=== PATIENT | female | born 1950 | race Caucasian/White ===

== ENCOUNTER → 2016-09-27 | Outpatient (CLI) | payer MEDICARE, MEDICAID ==
[~2016-09-27] MED LIST: /ESOM40CA OR; ALLE25CA OR; ASPI1TAB PO; BIOT1CAP2 PO; CALC500T49; CALC600T10 OR; COLA100C2 OR; DETR4CAP OR; ESTR0.022; ESTR0.022 PV; ESTR62CR PV; EXCETAB OR; FETZ1CAP3 PO; FISHCAP OR; FOLI400T PO; FOLITAB11 PO; HYDR25TA6 OR; LIDO5DIS EX; LIPI10TA OR; MELOPOW XX; MOBI15TA PO; MORP15TA2 PO; MORP15TA4 OR; MORP15TA4 PO; MS C15TA5; NUCY100T6 PO; OXYBPOW PO; PERC5TAB8 PO; PILO7.5T2 PO; PRISTIQ OR; PROV100T OR; SENN8.6T5; SOMA350T; SOMA350T OR; THERGRAN OR; ULTR200T OR; VITA-121 PO; VITA200019 PO; VITA50TA12 OR; VITAMIN B6 OR; VITAMIN C OR; VITAMIN D OR; VOLT1GEL EX; ZEST20TA4 OR; [UNRECOGNIZED DRUG - OTHER]; hydroxychloroquine PO; meloxicam PO; probiotic PO; restasis OU
--- NOTE | 2016-10-13 00:31 | ECWPNPC ---
PATIENT NAME: MELL RUIZ : 1950 GENDER: FEMALE VISIT DATE: 09/27/2016 DISCHARGE DATE: 09/27/16 1510 VISIT LOCKED DATE TIME: PHYSICIAN: COLLETTE RUIZ PHYSICIAN PAGER NO: [phone] RESOURCE: COLLETTE RUIZ REASON FOR APPOINTMENT 1. NECK PAIN HISTORY OF PRESENT ILLNESS HISTORY OF PRESENT ILLNESS: HERE FOR F/U FOR NECK PAIN-CHRONIC. RATING VAS 3/10.USING SOMA 350MG PRN FOR SEVERE PAIN WHICH SHE FINDS EFFECTIVE.DISCUSSED MEDICATION OPTIONS.HAS WEANED OFF MORPHINE 15MG AND IS USING TYLENOL ARTHRITIS STRENGTH WITH SOME IMPROVEMENT.HAVING SIGNIFICANT INCREASE IN LEFT NECK PAIN AND HEADACHE LATELY. RECIEVING BOTOX FOR NECK PAIN AND HEADACHE WITH .C/O GENERALIZED BODY PAIN AND NEUROPATHY TYPE PAIN IN FEET.DISCUSSED TRIAL OF CYMBALTA. PAIN THE PATIENT DESCRIBES THE PAIN... THE PATIENT DESCRIBES THE PAIN... THE PATIENT DESCRIBES THE PAIN... FALL RISK SCREENING: SCREENING :NO FALLS IN THE PAST YEAR CURRENT MEDICATIONS TAKING CLOTRIMAZOLE 1 % CREAM 1 APPLICATION TO AFFECTED AREA EXTERNALLY TWICE A DAY, USE UNTIL THE REDNESS IS GONE TAKING TRIAMCINOLONE ACETONIDE 0.1 % CREAM 1 APPLICATION SPARINGLY TO AFFECTED AREA EXTERNALLY BID, USE SEVERAL HOURS AFTER THE CLOTRIMAZOLE, USE UNTIL THE REDNESS IS GONE TAKING HYDROXYCHLOROQUINE SULFATE 200 MG TABLET 2 TAB RHEUM ORALLY DAILY TAKING RESTASIS 0.05 % EMULSION 1 INTO BOTH EYES OPHTHALMIC TWICE A DAY TAKING FOLIC ACID 800 MCG TABLET 1 TAB(S) ORALLY DAILY TAKING EXCEDRIN TENSION HEADACHE 500-65 MG TABLET DIRECTED ORALLY NEEDED TAKING CALCIUM 600 600 MG TABLET 1 TABLET ORALLY DAILY TAKING FETZIMA 40 MG CAPSULE EXTENDED RELEASE 24 HOUR 1 CAPSULE ORALLY ONCE A DAY TAKING BIOTIN 5 MG TABLET 1 TABLET ORALLY ONCE A DAY TAKING FISH OIL 1400 MG CAPSULE 1 CAPSULE ORALLY ONCE A DAY TAKING ZESTORETIC 20-25 MG TABLET 1 TABLET ORALLY ONCE A DAY TAKING LIPITOR 10 MG TABLET 1 TABLET ORALLY AT BEDTIME TAKING PREMARIN 0.625 MG/GM CREAM 1/2 GRAM VAGINAL TWICE WEEKLY TAKING ASPIRIN ADULT LOW DOSE 81 MG TABLET DELAYED RELEASE 1 TABLET ORALLY ONCE A DAY TAKING VITAMIN D-3 SUPER STRENGTH 2000 UNIT CAPSULE 1 CAP(S) ORALLY DAILY TAKING OXYBUTYNIN CHLORIDE 5 MG TABLET 1 TABLET ORALLY ONCE A DAY TAKING COLACE 100 MG CAPSULE 4 TABS P.O. ONCE A DAY TAKING TYLENOL PM EXTRA STRENGTH 500-25 MG TABLET 1 TABLET AT BEDTIME NEEDED ORALLY ONCE A DAY TAKING SOMA 350 MG TABLET 1 TAB [facility] P.O. TWICE DAILY PRN MDD2 TAKING LYSINE 500 MG TABLET ORALLY L- LYSINE DAILY TAKING MECLIZINE HCL 25 MG TABLET 1 TABLETS ORALLY THREE TIMES A DAY NEEDED FOR VERTIGO TAKING LIPITOR 10 MG TABLET TAKE ONE TABLET BY MOUTH AT BEDTIME TAKING ZESTORETIC 25 MG-20 MG TABLET TAKE ONE TABLET BY MOUTH EVERY DAY TAKING NEXIUM 40 MG CAPSULE DELAYED RELEASE 1 CAP(S) ORALLY DAILY NOT-TAKING VOLTAREN 1 % GEL DIRECTED EXTERNALLY EVERY 8 HOURS NEEDED NOT-TAKING MELOXICAM 15 MG TABLET 1 TAB RHEUM ORALLY DAILY NEEDED NOT-TAKING VITAMIN B-12 OTC TABLET 1 TABLET ORALLY DAILY NOT-TAKING NYSTATIN 931758 UNIT/GM POWDER 1 APPLICATION TO AFFECTED AREA EXTERNALLY TWICE A DAY NOT-TAKING BETAMETHASONE DIPROPIONATE 0.05 % LOTION 1 APPLICATION TO AFFECTED AREA EXTERNALLY TWICE A DAY PRN NOT-TAKING VITAMIN E OTC/DOSE ? CAPSULE 1 CAPSULE ORALLY DAILY NOT-TAKING VITAMIN D 2000 UNIT TABLET DIRECTED ORALLY ONCE A DAY NOT-TAKING ESTRACE 0.1 MG/GM CREAM 1 GRAM VAGINALLY 2 X WEEKLY @ [facility] MEDICATION LIST REVIEWED AND RECONCILED WITH THE PATIENT PAST MEDICAL HISTORY RAQUEL/CPAP-PULM- [facility] HTN CHRONIC NECK PAIN - BOTOX WITH [facility] CHRONIC PAIN- [facility] SLE AND SJOGREN'S- RHEUMATOLOGY [facility]/ DR MCGOVERN FIBROMYALGIA-RHEUMATOLOGY [facility]/DR MCGOVERN GERD DEPRESSION - DR HALE Q3 MONTHLY ANEMIA OF CHRONIC DISEASE URINARY INCONTINENCE HYPERCHOLESTEROLEMIA ?BORDERLINE [facility] - DR. LINH CAZARES CATARACTS - DR. LINH CAZARES TM NUCLEAR STRESS CANNY 11/2010- LOW RISK, NML PERFUSION - CARY MCCLENDON 04/22 MULTINODULAR THYROID ON US 2014. ALLERGIES CIPRO: RASH: ALLERGY CLINORIL: RASH: ALLERGY IBUPROFEN: FACIAL SWELLING: ALLERGY WELLBUTRIN: RASH: ALLERGY PENICILLIN (FOR ALLERGIES USE ONLY): RASH: ALLERGY PRAVACHOL 10: MYALGIA: ALLERGY ADHESIVE TAPE: BLISTERS: ALLERGY SOCIAL HISTORY GENERAL: TOBACCO USE ARE YOU A:NONSMOKER LEARNING BARRIERS / SPECIAL NEEDS ORIENTED TO PLAN OF CARE: PATIENT, PAIN MANAGEMENT PATIENT, ORIENTED TO PLAN OF CARE: PATIENT, PAIN MANAGEMENT PATIENT. NEW PATIENT PAIN DIARY TODAY'S VISITNOTES FROM 0-10, WHAT LEVEL IS YOUR PAIN TODAY?0 PAIN CLINIC PFS, CLERGY, PUBLIC HEALTH REFERRALS PFS REFERRAL NEEDED?NO CLERGY REFERRAL NEEDED?NO PUBLIC HEALTH REFERRAL NEEDED?NO WAS THE PROVIDER NOTIFIED OF ANY PERTINENT INFO?NO PFS REFERRAL NEEDED?NO CLERGY REFERRAL NEEDED?NO PUBLIC HEALTH REFERRAL NEEDED?NO WAS THE PROVIDER NOTIFIED OF ANY PERTINENT INFO?NO REVIEW OF SYSTEMS CONSTITUTIONAL: ANY CHANGE IN YOUR MEDICAL CONDITION? NO . CHILLS NO . FEVER NO . INFECTION: DO YOU HAVE NEW INFECTIONS? NO . DO YOU HAVE HISTORY OF MRSA? NO . MUSCULOSKELETAL: ANY NEW PATTERNS OF PAIN OR NUMBNESS? NO . GASTROENTEROLOGY: ANY NEW CHANGE IN BOWEL CONTROL? NO . GENITOURINARY: ANY NEW CHANGE IN BLADDER CONTROL? NO . IS THERE A CHANCE YOU COULD BE ? NO . HEMATOLOGY/LYMPH: DO YOU TAKE ANY BLOOD THINNERS? (FOR EXAMPLE- COUMADIN, PLAVIX, AGGRENOX, PLATEL, PRADAXA, OR XARELTO) NO . WHEN WAS YOUR LAST DOSE? DATE: TIME: . NEUROLOGY: HAVE YOU FALLEN IN THE PAST 6 MONTHS? NO . ANY NEW EXTREMITY NUMBNESS OR WEAKNESS? NO . CARDIOLOGY: DO YOU HAVE A PACEMAKER OR DEFIBRILLATOR? NO . RESPIRATORY: HAVE YOU BEEN SICK IN THE PAST WEEK? NO . FEVER NO . FLU LIKE SYMPTOMS? NO . COUGH NO . INTEGUMENTARY: DO YOU HAVE ANY RASHES OR OPEN SORES? NO . ALLERGIC/IMMUNO: ARE YOU ALLERGIC TO SHELLFISH OR IV DYE? NO . ANY NEW ALLERGIES? NO . PSYCHIATRIC: DO YOU HAVE THOUGHTS OF HURTING YOURSELF OR SOMEONE ELSE? NO . ARE YOU ABUSED, NEGLECTED, OR IN AN UNSAFE ENVIRONMENT? NO . ENDOCRINOLOGY: ARE YOU DIABETIC? NO . OTHER: DO YOU NEED ANY PRESCRIPTIONS? NO . IF YES, PLEASE LIST: ____ . ANY NEW PROBLEMS WITH YOUR MEDICATIONS? NO . WHEN DID YOU LAST EAT? ____ . WHEN DID YOU LAST DRINK? ____ . WHAT DID YOU LAST DRINK? ____ . NAME OF PERSON DRIVING YOU HOME? ____ . DO YOU HAVE ANY OTHER QUESTIONS OR CONCERNS NO . REVIEWED BY: PROVIDER: COLLETTE LEWIS . VITAL SIGNS WT 167 LBS, HT 60.5 IN, BMI 32.07 INDEX, BP 141/79 MM HG, HR 90 /MIN, RR 18 /MIN, TEMP 97.3 F, OXYGEN SAT % 99%, NA INITIALS SC 14:19, REVIEWED BY: AIDA. EXAMINATION GENERAL EXAMINATION: LUNGS:LUNG SOUNDS ARE CLEAR. HEART:HEART RATE REGULAR. MUSCULOSKELETAL:*, MUSCLE STRENGTH TESTING 5/5 BILATERAL UPPER AND LOWER EXTREMITIES., PALPATION: POSITIVE FOR PAIN OVER CERVICAL SPINE. POSITIVE FOR PAIN OVER CERVICAL PARASPINALS.. ASSESSMENTS CERVICALGIA - M54.2 (PRIMARY) MYALGIA - M79.1 NEUROPATHY - G62.9 TREATMENT CERVICALGIA CONTINUE COLACE CAPSULE, 100 MG, 4 TABS, P.O., ONCE A DAY CONTINUE SOMA TABLET, 350 MG, 1 TAB [facility], P.O., TWICE DAILY PRN MDD2 START CYMBALTA CAPSULE DELAYED RELEASE PARTICLES, 30 MG, 1 CAPSULE, ORALLY, ONCE A DAY, 30 DAY(S), 30 CAPSULE, REFILLS 2 PROCEDURE CODES FA211 ESTABILISHED PATIENT [facility] FACILITY CHARGE G8730 PAIN ASSESS POS TOOL F/U PLAN DOC G8427 DOC MEDS VERIFIED W/PT OR RE FOLLOW UP 6 WEEKS ELECTRONICALLY SIGNED BY JOSHUA MILLER ON 10/12/2016 AT 01:40 PM EST DISCLAIMER : THIS IS A VISIT SUMMARY EXTRACTED FROM THE [employer] CHART. IT IS NOT A COPY OF THE [employer] PROGRESS NOTE. MTDD
== END ==
LOC: M PAIN 14:20
PROVIDERS: ATTEND Nurse Practitioner Family
DX: M54.2 Cervicalgia (principal); M79.1 Myalgia; G62.9 Polyneuropathy, unspecified; Z79.82 Long term (current) use of aspirin; Z79.899 Other long term (current) drug therapy; Z88.1 Allergy status to other antibiotic agents; Z88.6 Allergy status to analgesic agent; Z88.0 Allergy status to penicillin; Z88.8 Allergy status to other drugs, medicaments and biological substances; Z91.048 Other nonmedicinal substance allergy status
CPT/HCPCS: G0463 ×2

== ENCOUNTER → 2016-11-08 | Outpatient (CLI) | payer MEDICARE, MEDICAID ==
--- NOTE | 2016-11-10 01:08 | ECWPNPC ---
PATIENT NAME: MELL RUIZ : 1950 GENDER: FEMALE VISIT DATE: 11/08/2016 DISCHARGE DATE: 11/08/16 1442 VISIT LOCKED DATE TIME: PHYSICIAN: COLLETTE RUIZ PHYSICIAN PAGER NO: [phone] RESOURCE: COLLETTE RUIZ REASON FOR APPOINTMENT 1. NECK PAIN HISTORY OF PRESENT ILLNESS HISTORY OF PRESENT ILLNESS: HERE FOR F/U FOR NECK PAIN-CHRONIC. RATING VAS 4/10.USING SOMA 350MG PRN FOR SEVERE PAIN WHICH SHE FINDS EFFECTIVE.DISCUSSED MEDICATION OPTIONS.HAS WEANED OFF MORPHINE 15MG AND IS USING TYLENOL ARTHRITIS STRENGTH WITH SOME IMPROVEMENT. RECIEVING BOTOX FOR NECK PAIN AND HEADACHE WITH .C/O GENERALIZED BODY PAIN AND NEUROPATHY TYPE PAIN IN FEET.TRIALED ON CYMBALTA 30MG DAILY LAST MONTH AT OUR CLINIC.STATES ACHY ALL OVER PAIN HAS NOT BEEN INTENSE.DENIES SIDE EFFECTS. PAIN THE PATIENT DESCRIBES THE PAIN... THE PATIENT DESCRIBES THE PAIN... THE PATIENT DESCRIBES THE PAIN... THE PATIENT DESCRIBES THE PAIN... FALL RISK SCREENING: SCREENING :NO FALLS IN THE PAST YEAR CURRENT MEDICATIONS TAKING CLOTRIMAZOLE 1 % CREAM 1 APPLICATION TO AFFECTED AREA EXTERNALLY TWICE A DAY, USE UNTIL THE REDNESS IS GONE TAKING TRIAMCINOLONE ACETONIDE 0.1 % CREAM 1 APPLICATION SPARINGLY TO AFFECTED AREA EXTERNALLY BID, USE SEVERAL HOURS AFTER THE CLOTRIMAZOLE, USE UNTIL THE REDNESS IS GONE TAKING HYDROXYCHLOROQUINE SULFATE 200 MG TABLET 2 TAB RHEUM ORALLY DAILY TAKING RESTASIS 0.05 % EMULSION 1 INTO BOTH EYES OPHTHALMIC TWICE A DAY TAKING FOLIC ACID 800 MCG TABLET 1 TAB(S) ORALLY DAILY TAKING EXCEDRIN TENSION HEADACHE 500-65 MG TABLET DIRECTED ORALLY NEEDED TAKING CALCIUM 600 600 MG TABLET 1 TABLET ORALLY DAILY TAKING FETZIMA 40 MG CAPSULE EXTENDED RELEASE 24 HOUR 1 CAPSULE ORALLY ONCE A DAY TAKING BIOTIN 5 MG TABLET 1 TABLET ORALLY ONCE A DAY TAKING FISH OIL 1400 MG CAPSULE 1 CAPSULE ORALLY ONCE A DAY TAKING ZESTORETIC 20-25 MG TABLET 1 TABLET ORALLY ONCE A DAY TAKING LIPITOR 10 MG TABLET 1 TABLET ORALLY AT BEDTIME TAKING PREMARIN 0.625 MG/GM CREAM 1/2 GRAM VAGINAL TWICE WEEKLY TAKING ASPIRIN ADULT LOW DOSE 81 MG TABLET DELAYED RELEASE 1 TABLET ORALLY ONCE A DAY TAKING VITAMIN D-3 SUPER STRENGTH 2000 UNIT CAPSULE 1 CAP(S) ORALLY DAILY TAKING OXYBUTYNIN CHLORIDE 5 MG TABLET 1 TABLET ORALLY ONCE A DAY TAKING TYLENOL PM EXTRA STRENGTH 500-25 MG TABLET 1 TABLET AT BEDTIME NEEDED ORALLY ONCE A DAY TAKING LYSINE 500 MG TABLET ORALLY L- LYSINE DAILY TAKING MECLIZINE HCL 25 MG TABLET 1 TABLETS ORALLY THREE TIMES A DAY NEEDED FOR VERTIGO TAKING LIPITOR 10 MG TABLET TAKE ONE TABLET BY MOUTH AT BEDTIME TAKING ZESTORETIC 25 MG-20 MG TABLET TAKE ONE TABLET BY MOUTH EVERY DAY TAKING NEXIUM 40 MG CAPSULE DELAYED RELEASE 1 CAP(S) ORALLY DAILY TAKING COLACE 100 MG CAPSULE 4 TABS P.O. ONCE A DAY TAKING SOMA 350 MG TABLET 1 TAB [facility] P.O. TWICE DAILY PRN MDD2 TAKING CYMBALTA 30 MG CAPSULE DELAYED RELEASE PARTICLES 1 CAPSULE ORALLY DAILY NOT-TAKING CYMBALTA 30 MG CAPSULE DELAYED RELEASE PARTICLES 1 CAPSULE ORALLY ONCE A DAY NOT-TAKING VOLTAREN 1 % GEL DIRECTED EXTERNALLY EVERY 8 HOURS NEEDED NOT-TAKING MELOXICAM 15 MG TABLET 1 TAB RHEUM ORALLY DAILY NEEDED NOT-TAKING VITAMIN B-12 OTC TABLET 1 TABLET ORALLY DAILY NOT-TAKING NYSTATIN [id number] UNIT/GM POWDER 1 APPLICATION TO AFFECTED AREA EXTERNALLY TWICE A DAY NOT-TAKING BETAMETHASONE DIPROPIONATE 0.05 % LOTION 1 APPLICATION TO AFFECTED AREA EXTERNALLY TWICE A DAY PRN NOT-TAKING VITAMIN E OTC/DOSE ? CAPSULE 1 CAPSULE ORALLY DAILY NOT-TAKING VITAMIN D 2000 UNIT TABLET DIRECTED ORALLY ONCE A DAY NOT-TAKING ESTRACE 0.1 MG/GM CREAM 1 GRAM VAGINALLY 2 X WEEKLY @ [facility] MEDICATION LIST REVIEWED AND RECONCILED WITH THE PATIENT PAST MEDICAL HISTORY RAQUEL/CPAP-PULM- [facility] HTN CHRONIC NECK PAIN - BOTOX WITH [place] CHRONIC PAIN- [facility] SLE AND SJOGREN'S- RHEUMATOLOGY [facility]/ DR MCGOVERN FIBROMYALGIA-RHEUMATOLOGY [facility]/DR MCGOVERN GERD DEPRESSION - DR HALE Q3 MONTHLY ANEMIA OF CHRONIC DISEASE URINARY INCONTINENCE HYPERCHOLESTEROLEMIA ?BORDERLINE [facility] - DR. LINH CAZARES CATARACTS - DR. LINH CAZARES TM NUCLEAR STRESS CANNY 11/2010- LOW RISK, NML PERFUSION - CARY MCCLENDON 04/22 MULTINODULAR THYROID ON US 2014. ALLERGIES CIPRO: RASH: ALLERGY CLINORIL: RASH: ALLERGY IBUPROFEN: FACIAL SWELLING: ALLERGY WELLBUTRIN: RASH: ALLERGY PENICILLIN (FOR ALLERGIES USE ONLY): RASH: ALLERGY PRAVACHOL 10: MYALGIA: ALLERGY ADHESIVE TAPE: BLISTERS: ALLERGY SOCIAL HISTORY GENERAL: TOBACCO USE ARE YOU A:NONSMOKER LEARNING BARRIERS / SPECIAL NEEDS ORIENTED TO PLAN OF CARE: PATIENT, PAIN MANAGEMENT PATIENT, ORIENTED TO PLAN OF CARE: PATIENT, PAIN MANAGEMENT PATIENT. NEW PATIENT PAIN DIARY TODAY'S VISITNOTES FROM 0-10, WHAT LEVEL IS YOUR PAIN TODAY?0 PAIN CLINIC PFS, CLERGY, PUBLIC HEALTH REFERRALS PFS REFERRAL NEEDED?NO CLERGY REFERRAL NEEDED?NO PUBLIC HEALTH REFERRAL NEEDED?NO WAS THE PROVIDER NOTIFIED OF ANY PERTINENT INFO?NO PFS REFERRAL NEEDED?NO CLERGY REFERRAL NEEDED?NO PUBLIC HEALTH REFERRAL NEEDED?NO WAS THE PROVIDER NOTIFIED OF ANY PERTINENT INFO?NO REVIEW OF SYSTEMS CONSTITUTIONAL: ANY CHANGE IN YOUR MEDICAL CONDITION? NO . RECENT ILLNESS DENIES . CHILLS NO . FEVER NO . WEIGHT LOSS DENIES . INFECTION: DO YOU HAVE NEW INFECTIONS? NO . DO YOU HAVE HISTORY OF MRSA? NO . MUSCULOSKELETAL: ANY NEW PATTERNS OF PAIN OR NUMBNESS? NO . GASTROENTEROLOGY: ANY NEW CHANGE IN BOWEL CONTROL? NO . GENITOURINARY: ANY NEW CHANGE IN BLADDER CONTROL? NO . IS THERE A CHANCE YOU COULD BE ? NO . HEMATOLOGY/LYMPH: DO YOU TAKE ANY BLOOD THINNERS? (FOR EXAMPLE- COUMADIN, PLAVIX, AGGRENOX, PLATEL, PRADAXA, OR XARELTO) NO . WHEN WAS YOUR LAST DOSE? DATE: TIME: . NEUROLOGY: HAVE YOU FALLEN IN THE PAST 6 MONTHS? NO . ANY NEW EXTREMITY NUMBNESS OR WEAKNESS? NO . CARDIOLOGY: DO YOU HAVE A PACEMAKER OR DEFIBRILLATOR? NO . CHEST PAIN DENIES . SHORTNESS OF BREATH DENIES . RESPIRATORY: HAVE YOU BEEN SICK IN THE PAST WEEK? NO . FEVER NO . FLU LIKE SYMPTOMS? NO . COUGH NO, DENIES . SHORTNESS OF BREATH DENIES . INTEGUMENTARY: DO YOU HAVE ANY RASHES OR OPEN SORES? NO . ALLERGIC/IMMUNO: ARE YOU ALLERGIC TO SHELLFISH OR IV DYE? NO . ANY NEW ALLERGIES? NO . PSYCHIATRIC: DO YOU HAVE THOUGHTS OF HURTING YOURSELF OR SOMEONE ELSE? NO . ARE YOU ABUSED, NEGLECTED, OR IN AN UNSAFE ENVIRONMENT? NO . ENDOCRINOLOGY: ARE YOU DIABETIC? NO . OTHER: DO YOU NEED ANY PRESCRIPTIONS? NO . IF YES, PLEASE LIST: ____ . ANY NEW PROBLEMS WITH YOUR MEDICATIONS? NO . WHEN DID YOU LAST EAT? ____ . WHEN DID YOU LAST DRINK? ____ . WHAT DID YOU LAST DRINK? ____ . NAME OF PERSON DRIVING YOU HOME? ____ . DO YOU HAVE ANY OTHER QUESTIONS OR CONCERNS NO . REVIEWED BY: PROVIDER: COLLETTE LEWIS . VITAL SIGNS WT 158 LBS, HT 60.5 IN, BMI 30.35 INDEX, BP 145/82 MM HG, HR 92 /MIN, RR 16 /MIN, TEMP 96.9 F, OXYGEN SAT % 99, NA INITIALS TL 1356, REVIEWED BY: KG. EXAMINATION GENERAL EXAMINATION: LUNGS:LUNG SOUNDS ARE CLEAR. HEART:HEART RATE REGULAR. MUSCULOSKELETAL:*, MUSCLE STRENGTH TESTING 5/5 BILATERAL UPPER AND LOWER EXTREMITIES., PALPATION: POSITIVE FOR PAIN OVER C SPINE. POSITIVE FOR PAIN OVER CERVICAL PARASPINALS.. DIAGNOSTIC: . ASSESSMENTS CERVICALGIA - M54.2 (PRIMARY) MYALGIA - M79.1 NEUROPATHY - G62.9 TREATMENT CERVICALGIA REFILL CYMBALTA CAPSULE DELAYED RELEASE PARTICLES, 30 MG, 1 CAPSULE, ORALLY, DAILY, 30 DAY(S), 30 CAPSULE, REFILLS 1 CONTINUE SOMA TABLET, 350 MG, 1 TAB [facility], P.O., TWICE DAILY PRN MDD2 PROCEDURE CODES FA211 ESTABILISHED PATIENT [facility] FACILITY CHARGE G8730 PAIN ASSESS POS TOOL F/U PLAN DOC G8427 DOC MEDS VERIFIED W/PT OR RE DISPOSITION & COMMUNICATION FOLLOW UP 2 MONTHS ELECTRONICALLY SIGNED BY JOSHUA MILLER ON 11/09/2016 AT 01:51 PM EST DISCLAIMER : THIS IS A VISIT SUMMARY EXTRACTED FROM THE [employer] CHART. IT IS NOT A COPY OF THE [employer] PROGRESS NOTE. MTDD
== END ==
LOC: M PAIN 14:00
PROVIDERS: ATTEND Nurse Practitioner Family
DX: Z09 Encounter for follow-up examination after completed treatment for conditions other than malignant neoplasm (principal); G89.29 Other chronic pain; M54.2 Cervicalgia; M79.7 Fibromyalgia; G62.9 Polyneuropathy, unspecified; G47.33 Obstructive sleep apnea (adult) (pediatric); I10 Essential (primary) hypertension; M35.00 Sjogren syndrome, unspecified; M32.9 Systemic lupus erythematosus, unspecified; K21.9 Gastro-esophageal reflux disease without esophagitis; F32.9 Major depressive disorder, single episode, unspecified; D64.9 Anemia, unspecified; E78.00 Pure hypercholesterolemia, unspecified; Z88.8 Allergy status to other drugs, medicaments and biological substances; Z88.0 Allergy status to penicillin; Z88.6 Allergy status to analgesic agent; L23.1 Allergic contact dermatitis due to adhesives; Z79.82 Long term (current) use of aspirin; Z79.891 Long term (current) use of opiate analgesic; Z79.899 Other long term (current) drug therapy

== ENCOUNTER → 2017-01-24 | Outpatient (CLI) | payer MEDICARE, MEDICAID ==
[~2017-01-24] VITALS: Ht 154.9 cm; Wt 73.0 kg
[~2017-01-24] MED LIST changes: +ACET50TA PO; +ATOR1TAB19 PO; +BIOT5TAB3 PO; +CALCTAB20 PO; +COLA100C3 PO; +DITR5TAB PO; +EXCETAB42 PO; +LIDOCAINE 2% INJ 100 MG/5 ML SDV (FOR ANES.) As Ordered ONE; +LIPI10TA PO; +LISI20TA3 PO; +NEXI40CA PO; +NS 1,000 ML IV ONE; +PROPOFOL 200 MG/20 ML VIAL As Ordered ONE
--- NOTE | 2017-01-24 11:40 | ROOR ---
Patient Name: Amaris Mtz Procedure Date: 01/24/2017 11:32 AM Date of : 1950 Age: 66 Room: [facility] Gender: Female Note Status: Finalized Procedure: Upper GI endoscopy Indications: Heartburn Providers: Ervin Shafer MD Referring MD: TITI YANG MD Requesting Provider: Medicines: Monitored Anesthesia Care Complications: No immediate complications. Procedure: Pre-Anesthesia Assessment: - The heart rate, respiratory rate, oxygen saturations, blood pressure, adequacy of pulmonary ventilation, and response to care were monitored throughout the procedure. The Endoscope was introduced through the mouth, and advanced to the second part of duodenum. The upper GI endoscopy was accomplished without difficulty. The patient tolerated the procedure well. Findings: The Z-line was regular and was found 40 cm from the incisors. No other significant abnormalities were identified in a careful examination of the stomach. The exam of the duodenum was otherwise normal. Impression: - Z-line regular, 40 cm from the incisors. - No specimens collected. - The examination was otherwise normal. Recommendation: - Patient has a contact number available for emergencies. The signs and symptoms of potential delayed complications were discussed with the patient. Return to normal activities tomorrow. Written discharge instructions were provided to the patient. - High fiber diet. - Discharge patient to home. - Continue present medications. - Follow an antireflux regimen. - Return to referring physician. - The findings and recommendations were discussed with the patient's family. Ervin Shafer MD Ervin Shafer MD 01/24/2017 11:39:37 AM This report has been signed electronically. Number of Addenda: 0 Note Initiated On: 01/24/2017 11:32 AM Estimated Blood Loss: Estimated blood loss: none.
--- NOTE | 2017-01-24 11:57 | ROOR ---
Patient Name: Amaris Mtz Procedure Date: 01/24/2017 11:33 AM Date of : 1950 Age: 66 Room: [facility] Gender: Female Note Status: Finalized Procedure: Total Colonoscopy to Cecum Indications: Colon cancer screening in patient at increased risk: Colorectal cancer in brother Providers: Ervin Shafer MD Referring MD: TITI YANG MD Requesting Provider: Medicines: Monitored Anesthesia Care Complications: No immediate complications. Procedure: Pre-Anesthesia Assessment: - The heart rate, respiratory rate, oxygen saturations, blood pressure, adequacy of pulmonary ventilation, and response to care were monitored throughout the procedure. The Colonoscope was introduced through the anus and advanced to the cecum, identified by appendiceal orifice and ileocecal valve. The colonoscopy was performed without difficulty. The patient tolerated the procedure well. The quality of the bowel preparation was excellent. Findings: The perianal and digital rectal examinations were normal. Non-bleeding internal hemorrhoids were found during retroflexion. The hemorrhoids were small and Grade I (internal hemorrhoids that do not prolapse). Scattered small and large-mouthed diverticula were found in the recto-sigmoid colon, sigmoid colon and descending colon. The exam was otherwise without abnormality on direct and retroflexion views. Impression: - Non-bleeding internal hemorrhoids. - Diverticulosis in the recto-sigmoid colon, in the sigmoid colon and in the descending colon. - The examination was otherwise normal on direct and retroflexion views. - No specimens collected. - The exam was otherwise normal to the cecum. Recommendation: - Patient has a contact number available for emergencies. The signs and symptoms of potential delayed complications were discussed with the patient. Return to normal activities tomorrow. Written discharge instructions were provided to the patient. - High fiber diet. - Discharge patient to home. - Continue present medications. - Repeat colonoscopy in 5 years for screening purposes. - Return to referring physician. - The findings and recommendations were discussed with the patient's family. Ervin Shafer MD Ervin Shafer MD 01/24/2017 11:56:45 AM This report has been signed electronically. Number of Addenda: 0 Note Initiated On: 01/24/2017 11:33 AM Estimated Blood Loss: Estimated blood loss: none.
[2017-01-24 12:20] VITALS: BP 138/83
== END | disposition home or self-care (01) ==
LOC: M OPP 10:14
PROVIDERS: ATTEND Internal Medicine Gastroenterology
DX: K62.5 Hemorrhage of anus and rectum (principal); R19.4 Change in bowel habit; K57.30 Diverticulosis of large intestine without perforation or abscess without bleeding; K64.0 First degree hemorrhoids; Z80.0 Family history of malignant neoplasm of digestive organs; R12 Heartburn; K21.9 Gastro-esophageal reflux disease without esophagitis; I10 Essential (primary) hypertension; E78.5 Hyperlipidemia, unspecified; R01.1 Cardiac murmur, unspecified; M32.9 Systemic lupus erythematosus, unspecified; F41.9 Anxiety disorder, unspecified; F32.9 Major depressive disorder, single episode, unspecified; R51 Headache; Z87.828 Personal history of other (healed) physical injury and trauma; M51.9 Unspecified thoracic, thoracolumbar and lumbosacral intervertebral disc disorder; G47.8 Other sleep disorders; G47.30 Sleep apnea, unspecified; R32 Unspecified urinary incontinence; Z87.891 Personal history of nicotine dependence; Z88.8 Allergy status to other drugs, medicaments and biological substances; Z91.040 Latex allergy status; Z88.1 Allergy status to other antibiotic agents; Z88.0 Allergy status to penicillin; Z91.048 Other nonmedicinal substance allergy status; Z79.82 Long term (current) use of aspirin; Z79.899 Other long term (current) drug therapy

== ENCOUNTER → 2017-02-02 | Outpatient (CLI) | payer MEDICARE, MEDICAID ==
[~2017-02-02] MED LIST changes: -LIDOCAINE 2% INJ 100 MG/5 ML SDV (FOR ANES.) As Ordered ONE; -NS 1,000 ML IV ONE; -PROPOFOL 200 MG/20 ML VIAL As Ordered ONE
--- NOTE | 2017-02-25 00:45 | ECWPNPC ---
PATIENT NAME: MELL RUIZ : 1950 GENDER: FEMALE VISIT DATE: 02/02/2017 DISCHARGE DATE: 02/02/17 1413 VISIT LOCKED DATE TIME: PHYSICIAN: COLLETTE RUIZ PHYSICIAN PAGER NO: [phone] RESOURCE: COLLETTE RUIZ REASON FOR APPOINTMENT 1. R/S BACK/NECK HISTORY OF PRESENT ILLNESS HISTORY OF PRESENT ILLNESS: HERE FOR F/U FOR NECK PAIN-CHRONIC. RATING VAS 4/10.USING SOMA 350MG PRN FOR SEVERE PAIN WHICH SHE FINDS EFFECTIVE.DISCUSSED MEDICATION OPTIONS.HAS WEANED OFF MORPHINE 15MG AND IS USING TYLENOL ARTHRITIS STRENGTH WITH SOME IMPROVEMENT. RECIEVING BOTOX FOR NECK PAIN AND HEADACHE WITH .C/O GENERALIZED BODY PAIN AND NEUROPATHY TYPE PAIN IN FEET.TRIALED ON CYMBALTA 30MG DAILY LAST MONTH AT OUR CLINIC.STATES ACHY ALL OVER PAIN HAS NOT BEEN INTENSE.DENIES SIDE EFFECTS. PAIN THE PATIENT DESCRIBES THE PAIN... THE PATIENT DESCRIBES THE PAIN... THE PATIENT DESCRIBES THE PAIN... THE PATIENT DESCRIBES THE PAIN... THE PATIENT DESCRIBES THE PAIN... PAIN THE PATIENT DESCRIBES THE PAIN... THE PATIENT DESCRIBES THE PAIN... THE PATIENT DESCRIBES THE PAIN... THE PATIENT DESCRIBES THE PAIN... THE PATIENT DESCRIBES THE PAIN... FALL RISK SCREENING: SCREENING :NO FALLS IN THE PAST YEAR CURRENT MEDICATIONS TAKING CLOTRIMAZOLE 1 % CREAM 1 APPLICATION TO AFFECTED AREA EXTERNALLY TWICE A DAY, USE UNTIL THE REDNESS IS GONE TAKING TRIAMCINOLONE ACETONIDE 0.1 % CREAM 1 APPLICATION SPARINGLY TO AFFECTED AREA EXTERNALLY BID, USE SEVERAL HOURS AFTER THE CLOTRIMAZOLE, USE UNTIL THE REDNESS IS GONE TAKING HYDROXYCHLOROQUINE SULFATE 200 MG TABLET 2 TAB RHEUM ORALLY DAILY TAKING RESTASIS 0.05 % EMULSION 1 INTO BOTH EYES OPHTHALMIC TWICE A DAY TAKING FOLIC ACID 800 MCG TABLET 1 TAB(S) ORALLY DAILY TAKING EXCEDRIN TENSION HEADACHE 500-65 MG TABLET DIRECTED ORALLY NEEDED TAKING CALCIUM 600 600 MG TABLET 1 TABLET ORALLY DAILY TAKING FETZIMA 40 MG CAPSULE EXTENDED RELEASE 24 HOUR 1 CAPSULE ORALLY ONCE A DAY TAKING BIOTIN 5 MG TABLET 1 TABLET ORALLY ONCE A DAY TAKING FISH OIL 1400 MG CAPSULE 1 CAPSULE ORALLY ONCE A DAY TAKING ZESTORETIC 20-25 MG TABLET 1 TABLET ORALLY ONCE A DAY TAKING LIPITOR 10 MG TABLET 1 TABLET ORALLY AT BEDTIME TAKING PREMARIN 0.625 MG/GM CREAM 1/2 GRAM VAGINAL TWICE WEEKLY TAKING ASPIRIN ADULT LOW DOSE 81 MG TABLET DELAYED RELEASE 1 TABLET ORALLY ONCE A DAY TAKING VITAMIN D3 SUPER STRENGTH 2000 UNIT CAPSULE 1 CAP(S) ORALLY DAILY TAKING OXYBUTYNIN CHLORIDE 5 MG TABLET 1 TABLET ORALLY ONCE A DAY TAKING TYLENOL PM EXTRA STRENGTH 500-25 MG TABLET 1 TABLET AT BEDTIME NEEDED ORALLY ONCE A DAY TAKING MECLIZINE HCL 25 MG TABLET 1 TABLETS ORALLY THREE TIMES A DAY NEEDED FOR VERTIGO TAKING LIPITOR 10 MG TABLET TAKE ONE TABLET BY MOUTH AT BEDTIME TAKING ZESTORETIC 25 MG-20 MG TABLET TAKE ONE TABLET BY MOUTH EVERY DAY TAKING NEXIUM 40 MG CAPSULE DELAYED RELEASE 1 CAP(S) ORALLY DAILY TAKING SOMA 350 MG TABLET 1 TAB [facility] P.O. TWICE DAILY PRN MDD2 TAKING COLACE 100 MG CAPSULE 4 CAP P.O. ONCE A DAY TAKING CYMBALTA 30 MG CAPSULE DELAYED RELEASE PARTICLES 1 CAPSULE ORALLY DAILY TAKING MELOXICAM 15 MG TABLET 1 TAB RHEUM ORALLY DAILY NEEDED NOT-TAKING LYSINE 500 MG TABLET ORALLY L- LYSINE DAILY NOT-TAKING CYMBALTA 30 MG CAPSULE DELAYED RELEASE PARTICLES 1 CAPSULE ORALLY ONCE A DAY NOT-TAKING VOLTAREN 1 % GEL DIRECTED EXTERNALLY EVERY 8 HOURS NEEDED NOT-TAKING VITAMIN B-12 OTC TABLET 1 TABLET ORALLY DAILY NOT-TAKING NYSTATIN [id number] UNIT/GM POWDER 1 APPLICATION TO AFFECTED AREA EXTERNALLY TWICE A DAY NOT-TAKING BETAMETHASONE DIPROPIONATE 0.05 % LOTION 1 APPLICATION TO AFFECTED AREA EXTERNALLY TWICE A DAY PRN NOT-TAKING VITAMIN E OTC/DOSE ? CAPSULE 1 CAPSULE ORALLY DAILY NOT-TAKING VITAMIN D 2000 UNIT TABLET DIRECTED ORALLY ONCE A DAY NOT-TAKING ESTRACE 0.1 MG/GM CREAM 1 GRAM VAGINALLY 2 X WEEKLY @ [facility] MEDICATION LIST REVIEWED AND RECONCILED WITH THE PATIENT PAST MEDICAL HISTORY RAQUEL/CPAP-PULM- [facility] HTN CHRONIC NECK PAIN - BOTOX WITH ANA CHRONIC PAIN- [facility] SLE AND SJOGREN'S- RHEUMATOLOGY [facility]/ DR MCGOVERN FIBROMYALGIA-RHEUMATOLOGY [facility]/DR MCGOVERN GERD DEPRESSION - DR HALE Q3 MONTHLY ANEMIA OF CHRONIC DISEASE URINARY INCONTINENCE HYPERCHOLESTEROLEMIA ?BORDERLINE [facility] - DR. LINH CAZARES CATARACTS - DR. LINH CAZARES TM NUCLEAR STRESS CANNY 11/2010- LOW RISK, NML PERFUSION - TOWNSEND DEXA 04/22 MULTINODULAR THYROID ON US 2014. DIVERTICULOSIS ALLERGIES CIPRO: RASH: ALLERGY CLINORIL: RASH: ALLERGY IBUPROFEN: FACIAL SWELLING: ALLERGY WELLBUTRIN: RASH: ALLERGY PENICILLIN (FOR ALLERGIES USE ONLY): RASH: ALLERGY PRAVACHOL 10: MYALGIA: ALLERGY ADHESIVE TAPE: BLISTERS: ALLERGY SURGICAL HISTORY TONSILLECTOMY [age] YO D&C 1990S C-SPINE SURGERY X 2 - DR. ROMERO 1988, 2000 HYSTERECTOMY, TOTAL WITH BSO FOR BENIGN REASONS 2000 RIGHT CARPAL TUNNEL 2007 COLONOSCOPY & EGD (ROSANA) INTERNAL HEMORRHOIDS/POLYP X 1 NO ADENOMATOUS CHANGES 09/2009 L LITTLE FINGER, EXCISION OF MASS () 11/2013 LEFT BREAST BX, DUCTAL HYPERPLASIA 10/2002 COLONOSCOPY 2017 HOSPITALIZATION/MAJOR DIAGNOSTIC PROCEDURE RELATED TO SURGERIES REVIEW OF SYSTEMS CONSTITUTIONAL: ANY CHANGE IN YOUR MEDICAL CONDITION? NO . CHILLS NO . FEVER NO . INFECTION: DO YOU HAVE NEW INFECTIONS? NO . DO YOU HAVE HISTORY OF MRSA? NO . MUSCULOSKELETAL: ANY NEW PATTERNS OF PAIN OR NUMBNESS? NO. PT STATES NO NEW PATTERNS OF PAIN . GASTROENTEROLOGY: ANY NEW CHANGE IN BOWEL CONTROL? NO. PT STATES SHE HAD A ENDOSCOPY AND COLONOSCOPY DONE LAST WEEK AND WAS DX WITH DIVERTICULOSIS . GENITOURINARY: ANY NEW CHANGE IN BLADDER CONTROL? NO, PT REPORTS STRESS INCONTINENCE . IS THERE A CHANCE YOU COULD BE ? NO . HEMATOLOGY/LYMPH: DO YOU TAKE ANY BLOOD THINNERS? (FOR EXAMPLE- COUMADIN, PLAVIX, AGGRENOX, PLATEL, PRADAXA, OR XARELTO) NO . WHEN WAS YOUR LAST DOSE? DATE: TIME: . NEUROLOGY: HAVE YOU FALLEN IN THE PAST 6 MONTHS? NO . ANY NEW EXTREMITY NUMBNESS OR WEAKNESS? NO . CARDIOLOGY: DO YOU HAVE A PACEMAKER OR DEFIBRILLATOR? NO . RESPIRATORY: HAVE YOU BEEN SICK IN THE PAST WEEK? NO . FEVER NO . FLU LIKE SYMPTOMS? NO . COUGH NO . INTEGUMENTARY: DO YOU HAVE ANY RASHES OR OPEN SORES? YES, RASH TO BRA LINE AREA, NECK AND PANT LINE WAISTE AREA. . ALLERGIC/IMMUNO: ARE YOU ALLERGIC TO SHELLFISH OR IV DYE? NO . ANY NEW ALLERGIES? NO . PSYCHIATRIC: DO YOU HAVE THOUGHTS OF HURTING YOURSELF OR SOMEONE ELSE? NO . ARE YOU ABUSED, NEGLECTED, OR IN AN UNSAFE ENVIRONMENT? NO . ENDOCRINOLOGY: ARE YOU DIABETIC? NO, PT STATES PRE-DIABETIC . OTHER: DO YOU NEED ANY PRESCRIPTIONS? YES, SOMA . IF YES, PLEASE LIST: ____ . ANY NEW PROBLEMS WITH YOUR MEDICATIONS? NO . WHEN DID YOU LAST EAT? ____ . WHEN DID YOU LAST DRINK? ____ . WHAT DID YOU LAST DRINK? ____ . NAME OF PERSON DRIVING YOU HOME? ____ . DO YOU HAVE ANY OTHER QUESTIONS OR CONCERNS NO . REVIEWED BY: PROVIDER: COLLETTE LEWIS . VITAL SIGNS WT 159.0 LBS, HT 60.5 IN, BMI 30.54 INDEX, BP 140/61 MM HG, HR 99 /MIN, RR 16 /MIN, TEMP 98.0 F, OXYGEN SAT % 99%, SAFE IN ENV? (Y/N) Y, NA INITIALS TL 1334, REVIEWED BY: EM. EXAMINATION GENERAL EXAMINATION: LUNGS:LUNG SOUNDS ARE CLEAR. HEART:HEART RATE REGULAR. MUSCULOSKELETAL:*, MUSCLE STRENGTH TESTING 5/5 BILATERAL UPPER AND LOWER EXTREMITIES., PALPATION: POSITIVE FOR PAIN OVER C SPINE. POSITIVE FOR PAIN OVER CERVICAL PARASPINALS.. DIAGNOSTIC: . ASSESSMENTS CERVICALGIA - M54.2 (PRIMARY) MYALGIA - M79.1 NEUROPATHY - G62.9 TREATMENT CERVICALGIA REFILL SOMA TABLET, 350 MG, 1 TAB [facility], P.O., TWICE DAILY PRN MDD2, 30 DAY(S), 30, REFILLS 2 CONTINUE COLACE CAPSULE, 100 MG, 4 CAP, P.O., ONCE A DAY CONTINUE CYMBALTA CAPSULE DELAYED RELEASE PARTICLES, 30 MG, 1 CAPSULE, ORALLY, DAILY CONTINUE MELOXICAM TABLET, 15 MG, 1 TAB RHEUM, ORALLY, DAILY NEEDED NOTES: TAKE CYMBALTA 30MG DAILY EVERY DAY AT SAME TIMEUSE MOBIC 15MG ONCE PER DAY X 5 DAYS NEEDED FOR [employer]. PROCEDURE CODES FA211 ESTABILISHED PATIENT [facility] CHARGE G8730 PAIN ASSESS POS TOOL F/U PLAN DOC G8427 DOC MEDS VERIFIED W/PT OR RE DISPOSITION & COMMUNICATION FOLLOW UP 3 MONTHS ELECTRONICALLY SIGNED BY JOSHUA MILLER ON 02/24/2017 AT 08:22 PM EDT DISCLAIMER : THIS IS A VISIT SUMMARY EXTRACTED FROM THE [employer] CHART. IT IS NOT A COPY OF THE [employer] PROGRESS NOTE. MTDD
== END ==
LOC: M PAIN 13:20
PROVIDERS: ATTEND Nurse Practitioner Family
DX: G89.29 Other chronic pain (principal); M54.2 Cervicalgia; M79.1 Myalgia; G62.9 Polyneuropathy, unspecified; G47.33 Obstructive sleep apnea (adult) (pediatric); I10 Essential (primary) hypertension; M35.00 Sjogren syndrome, unspecified; M32.9 Systemic lupus erythematosus, unspecified; K21.9 Gastro-esophageal reflux disease without esophagitis; F32.9 Major depressive disorder, single episode, unspecified; K57.90 Diverticulosis of intestine, part unspecified, without perforation or abscess without bleeding; H26.9 Unspecified cataract; R32 Unspecified urinary incontinence; E78.00 Pure hypercholesterolemia, unspecified; D63.8 Anemia in other chronic diseases classified elsewhere; E04.2 Nontoxic multinodular goiter; Z79.82 Long term (current) use of aspirin; Z79.899 Other long term (current) drug therapy; Z88.0 Allergy status to penicillin; Z88.1 Allergy status to other antibiotic agents; Z88.8 Allergy status to other drugs, medicaments and biological substances; Z88.6 Allergy status to analgesic agent; Z91.048 Other nonmedicinal substance allergy status

== ENCOUNTER → 2017-03-22 | Outpatient (CLI) | payer MEDICARE, MEDICAID ==
[~2017-03-22] MED LIST changes: -COLA100C3 PO; +COLA100C5 PO; -EXCETAB42 PO; +EXCETAB49 PO
--- NOTE | 2017-03-24 10:00 | DEXA ---
AP SPINE L1 - L4 1.096 -0.8 0.8 LT FEMUR TOTAL 1.015 0.1 1.4 RT FEMUR TOTAL 0.964 -0.4 1.0 TOTAL BODY TOTAL OTHER DUAL FEMUR FRAX* ASSESSMENT Risk factors: Family history hip fracture. 10 year probability of fracture Major osteoporotic fracture 15.9 % Hip fracture 2.3 % COMMENTS: Normal bone densitometry of the spine. There is low bone density of the hips. The decreased density of the spine does represent a significant change. The decreased density of the left hip does represent a significant change. The decreased density of the right hip does represent a significant change. The density of the spine has decreased 6.0% since the initial exam on 07/2003. The spine density has decreased 5.4% since the most recent exam on 04/2012. The density of the left hip has decreased 3.5% since the initial exam on 2002. The density of the left hip has decreased 4.1% since the most recent exam on 2011. The density of the right hip has decreased 5.8% since the initial exam on 2002. The density of the right hip has decreased 4.3% since the most recent exam on 2011. FOLLOW-UP: Recommendation for the next bone density exam: 2 years. GENE
== END ==
LOC: M WHC 12:53
PROVIDERS: ATTEND Nurse Practitioner Women's Health
DX: Z13.820 Encounter for screening for osteoporosis (principal); Z78.0 Asymptomatic menopausal state; M85.80 Other specified disorders of bone density and structure, unspecified site

== ENCOUNTER → 2017-03-30 | Outpatient (REF) | payer MEDICARE, MEDICAID ==
[2017-03-30 17:53] LABS: BASO % 1.1 % (0.0-1.0); EOS # 0.3 K/mm3 (0.0-0.50); EOS % 6.2 % (0.0-3.0); LARGE UNSTAINED CELL # 0.2 K/mm3 (0.0-0.4); LARGE UNSTAINED CELL % 3.5 % (0.0-4.0); LYMPH # 1.6 K/mm3 (1.5-4.5); MEAN CORPUSCULAR HEMOGLOBIN 29.9 pg (27.0-33.0); MEAN CORPUSCULAR HGB CONC 34.2 g/dl (32.0-36.5); MEAN CORPUSCULAR VOLUME 87.5 fl (80.0-96.0); MONO # 0.5 K/mm3 (0.0-0.8); MONO % 10.1 % (0.0-5.0); NEUTROPHILS # 2.5 K/mm3 (1.8-7.7); NEUTROPHILS % 50.2 % (36.0-66.0); PLATELET COUNT, AUTOMATED 325 k/mm3 (150-450); RED CELL DISTRIBUTION WIDTH 13.2 % (11.5-14.5)
== END ==
LOC: M SFHCPLAZ 13:23
PROVIDERS: ATTEND Nurse Practitioner Family
DX: K92.2 Gastrointestinal hemorrhage, unspecified (principal)

== ENCOUNTER → 2017-05-11 | Outpatient (REF) | payer MEDICARE, MEDICAID | LOC: M LAB REF 15:03 | PROVIDERS: ATTEND Otolaryngology | DX: E04.2 Nontoxic multinodular goiter (principal) ==

== ENCOUNTER → 2017-06-15 | Outpatient (REF) | payer MEDICARE, MEDICAID ==
[2017-06-15 19:37] LABS: BASO % 0.8 % (0.0-1.0); EOS # 0.1 10^3/uL (0.0-0.50); EOS % 2.9 % (0.0-3.0); IMMATURE GRANULOCYTE % 0.2 % (0-0); LYMPH # 1.5 10^3/uL (1.5-4.5); MEAN CORPUSCULAR HEMOGLOBIN 28.9 pg (27.0-33.0); MEAN CORPUSCULAR VOLUME 87.6 fl (80.0-96.0); MONO # 0.5 10^3/uL (0.0-0.8); MONO % 9.7 % (0.0-5.0); NEUTROPHILS # 2.7 10^3/uL (1.8-7.7); NEUTROPHILS % 56.4 % (36.0-66.0); PLATELET COUNT, AUTOMATED 342 10^3/uL (150-450); RED CELL DISTRIBUTION WIDTH 14.2 % (11.5-14.5); WHITE BLOOD COUNT 4.8 10^3/uL (4.0-10.0)
[2017-06-15 19:47] LABS: ADD MORPHOLOGY? NO
[2017-06-15 20:17] LABS: ERYTHROCYTE SEDIMENTATION RATE 34 mm/hr (0-30)
[2017-06-15 21:17] LABS: ALBUMIN 3.8 GM/DL (3.2-5.2); ALBUMIN/GLOBULIN RATIO 1.15 (1.00-1.93); ALKALINE PHOSPHATASE 72 U/L (45-117); ALT/SGPT 30 U/L (12-78); ANION GAP 9 MEQ/L (8-16); AST/SGOT 21 U/L (15-37); BILIRUBIN,TOTAL 0.2 MG/DL (0.2-1.0); BLOOD UREA NITROGEN 16 MG/DL (7-18); CALCIUM LEVEL 8.6 MG/DL (8.8-10.2); CARBON DIOXIDE LEVEL 27 MEQ/L (21-32); CHLORIDE LEVEL 101 MEQ/L (98-107); CREATININE FOR GFR 0.99 MG/DL (0.55-1.02); GLOMERULAR FILTRATION RATE 59.4 (>45); GLUCOSE, FASTING 88 MG/DL (80-110); POTASSIUM SERUM 3.8 MEQ/L (3.5-5.1); SODIUM LEVEL 137 MEQ/L (136-145); TOTAL PROTEIN 7.1 GM/DL (6.4-8.2)
[2017-06-19 10:48] LABS: ALBUMIN 4.23 GM/DL (3.29-5.55); ALBUMIN % 59.6 % (55.8-66.1); GAMMA GLOBULIN % 10.5 % (11.1-18.8)
[2017-06-20 00:06] LABS: Lyme Disease IgG/IgM Antibodie <0.91 ISR (0.00-0.90); Lyme Disease IgM Ab Quantitati <0.80 index (0.00-0.79); SJOGREN'S ANTI SS-A 5.9 AI (0.0-0.9); SJOGREN'S ANTI SS-B <0.2 AI (0.0-0.9)
== END ==
LOC: M LABNEURO 14:59
PROVIDERS: ATTEND Psychiatry & Neurology Neurology
DX: G95.9 Disease of spinal cord, unspecified (principal); Z79.899 Other long term (current) drug therapy

== ENCOUNTER → 2017-06-19 | Outpatient (CLI) | payer MEDICARE, MEDICAID ==
--- NOTE | 2017-06-19 13:43 | REPMRS ---
Patient History The patient states she had a clinical breast exam in 02/2017. Patient is postmenopausal. Family history of unknown cancer in maternal aunt at age 50 or over, prostate cancer in brother at age 68, and colorectal cancer in brother at age 68. Benign excisional biopsy of the right breast, 1999. Taking estrogen for 8 years 6 months. Digital Woman Screen Mammo: June 19, 2017 - Exam #: [id number] Bilateral CC and MLO view(s) were taken. Technologist: Aixa Dejesus, Technologist Prior study comparison: June 21, 2016, digital woman screen mammo performed at [facility]. June 18, 2015, digital woman screen mammo performed at [facility]. June 16, 2014, digital woman screen mammo performed at [facility]. FINDINGS: There are scattered fibroglandular densities. There has been no change in the appearance of the mammogram from the prior studies. There is a mild amount of scattered fibroglandular density which is fairly symmetric. There is no interval development of dominant mass, architectural distortion, or clustered microcalcification suggestive of malignancy. ASSESSMENT: BI-RADS/ACR category 1 mammogram. Negative. Recommendation Routine screening mammogram in 1 year (for women over age 40). This mammogram was interpreted with the aid of an FDA-approved computer-aided dectection system. Electronically Signed By: Romario Caicedo MD 06/19/17 2474
== END ==
LOC: M WHC 12:56
PROVIDERS: ATTEND Nurse Practitioner Women's Health
DX: Z12.31 Encounter for screening mammogram for malignant neoplasm of breast (principal)

== ENCOUNTER → 2017-10-03 | Outpatient (CLI) | payer MEDICARE, MEDICAID | LOC: M PAIN 13:30 | DX: G89.29 Other chronic pain (principal); M54.2 Cervicalgia; G62.9 Polyneuropathy, unspecified; M79.1 Myalgia; I10 Essential (primary) hypertension; M35.00 Sjogren syndrome, unspecified; J45.909 Unspecified asthma, uncomplicated; E78.00 Pure hypercholesterolemia, unspecified; G47.33 Obstructive sleep apnea (adult) (pediatric); R73.09 Other abnormal glucose; Z79.891 Long term (current) use of opiate analgesic; Z79.82 Long term (current) use of aspirin; Z79.899 Other long term (current) drug therapy; Z88.0 Allergy status to penicillin; Z88.6 Allergy status to analgesic agent; Z88.8 Allergy status to other drugs, medicaments and biological substances; Z91.048 Other nonmedicinal substance allergy status | CPT/HCPCS: G0463 ==

== ENCOUNTER → 2017-12-01 | Outpatient (CLI) | payer MEDICARE, MEDICAID | LOC: M PAIN 13:15 | DX: M54.2 Cervicalgia (principal); M79.1 Myalgia; G62.9 Polyneuropathy, unspecified; I10 Essential (primary) hypertension; K21.9 Gastro-esophageal reflux disease without esophagitis; Z79.82 Long term (current) use of aspirin; Z79.899 Other long term (current) drug therapy; Z88.8 Allergy status to other drugs, medicaments and biological substances; Z91.048 Other nonmedicinal substance allergy status | CPT/HCPCS: G0463 ==

== ENCOUNTER → 2018-01-09 | Outpatient (REF) | payer MEDICARE, MEDICAID ==
[2018-01-09 16:05] LABS: C REACTIVE PROTEIN QUANTITATIV < 0.30 MG/DL (0.00-0.30)
[2018-01-09 16:27] LABS: ERYTHROCYTE SEDIMENTATION RATE 29 mm/hr (0-30)
== END ==
LOC: M LABDRAW1 13:00
DX: M75.111 Incomplete rotator cuff tear or rupture of right shoulder, not specified as traumatic (principal)
CPT/HCPCS: 86140

== ENCOUNTER 2018-01-29 07:34 | Day surgery (SDC) | payer MEDICARE, MEDICAID ==
[~2018-01-29 07:34] MED LIST changes: -/ESOM40CA OR; -ACET50TA PO; -ALLE25CA OR; -ASPI1TAB PO; -ATOR1TAB19 PO; -BIOT1CAP2 PO; -BIOT5TAB3 PO; -CALC500T49; -CALC600T10 OR; -CALCTAB20 PO; -COLA100C2 OR; -COLA100C5 PO; -DETR4CAP OR; -DITR5TAB PO; -ESTR0.022; -ESTR0.022 PV; -ESTR62CR PV; -EXCETAB OR; -EXCETAB49 PO; -FETZ1CAP3 PO; -FISHCAP OR; -FOLI400T PO; -FOLITAB11 PO; -HYDR25TA6 OR; -LIDO5DIS EX; +LIDOCAINE 2% INJ 100 MG/5 ML SDV (FOR ANES.) As Ordered; -LIPI10TA OR; -LIPI10TA PO; -LISI20TA3 PO; -MELOPOW XX; -MOBI15TA PO; -MORP15TA2 PO; -MORP15TA4 OR; -MORP15TA4 PO; -MS C15TA5; -NEXI40CA PO; -NUCY100T6 PO; -OXYBPOW PO; -PERC5TAB8 PO; -PILO7.5T2 PO; -PRISTIQ OR; +PROPOFOL 200 MG/20 ML VIAL As Ordered; -PROV100T OR; -SENN8.6T5; -SOMA350T; -SOMA350T OR; -THERGRAN OR; -ULTR200T OR; -VITA-121 PO; -VITA200019 PO; -VITA50TA12 OR; -VITAMIN B6 OR; -VITAMIN C OR; -VITAMIN D OR; -VOLT1GEL EX; -ZEST20TA4 OR; -[UNRECOGNIZED DRUG - OTHER]; -hydroxychloroquine PO; -meloxicam PO; -probiotic PO; -restasis OU
[2018-01-29] MEDS: NS 1,000 ML IV (07:50)
== END 2018-01-29 09:29 | disposition home or self-care (01) ==
LOC: M OPP 07:34
DX: R13.10 Dysphagia, unspecified (principal); I10 Essential (primary) hypertension; E78.5 Hyperlipidemia, unspecified; R01.1 Cardiac murmur, unspecified; K59.00 Constipation, unspecified; K21.9 Gastro-esophageal reflux disease without esophagitis; R63.0 Anorexia; R63.4 Abnormal weight loss; K62.5 Hemorrhage of anus and rectum; M19.90 Unspecified osteoarthritis, unspecified site; M32.9 Systemic lupus erythematosus, unspecified; F41.9 Anxiety disorder, unspecified; F32.9 Major depressive disorder, single episode, unspecified; R51 Headache; R42 Dizziness and giddiness; I67.1 Cerebral aneurysm, nonruptured; G47.8 Other sleep disorders; G47.30 Sleep apnea, unspecified; R32 Unspecified urinary incontinence; Z88.8 Allergy status to other drugs, medicaments and biological substances; Z88.1 Allergy status to other antibiotic agents; Z88.0 Allergy status to penicillin; Z91.040 Latex allergy status; Z91.048 Other nonmedicinal substance allergy status; Z79.82 Long term (current) use of aspirin; Z79.899 Other long term (current) drug therapy; Z80.0 Family history of malignant neoplasm of digestive organs; Z87.891 Personal history of nicotine dependence
CPT/HCPCS: 43249

== ENCOUNTER → 2018-05-21 | Outpatient (REF) | payer MEDICARE, MEDICAID | LOC: M LAB REF 17:33 | DX: E04.2 Nontoxic multinodular goiter (principal) | CPT/HCPCS: 88173 ==

== ENCOUNTER → 2018-05-31 | Outpatient (CLI) | payer MEDICARE, MEDICAID | LOC: M PAIN 14:00 | DX: M54.2 Cervicalgia (principal); M25.50 Pain in unspecified joint; I10 Essential (primary) hypertension; K21.9 Gastro-esophageal reflux disease without esophagitis; F32.9 Major depressive disorder, single episode, unspecified; E55.9 Vitamin D deficiency, unspecified; Z79.82 Long term (current) use of aspirin; Z79.899 Other long term (current) drug therapy; Z88.8 Allergy status to other drugs, medicaments and biological substances; Z91.048 Other nonmedicinal substance allergy status; Z90.710 Acquired absence of both cervix and uterus | CPT/HCPCS: G0463 ==

== ENCOUNTER → 2018-06-22 | Outpatient (CLI) | payer MEDICARE, MEDICAID | LOC: M WHC 11:23 | DX: Z12.31 Encounter for screening mammogram for malignant neoplasm of breast (principal); Z78.0 Asymptomatic menopausal state; Z79.890 Hormone replacement therapy | CPT/HCPCS: 77067 ==

== ENCOUNTER → 2018-08-20 | Outpatient (CLI) | payer MEDICARE, MEDICAID ==
[~2018-08-20] MED LIST changes: +/ESOM40CA OR; +ALLE25CA OR; +AMIT10TA PO; +ASPI1TAB PO; +ATOR1TAB19 PO; +BIOT1CAP2 PO; +BIOT5TAB3 PO; +CALC500T49; +CALC600T10 OR; +CALCTAB20 PO; +COLA100C2 OR; +COLA100C5 PO; +DETR4CAP OR; +DITR5TAB PO; +ESTR0.022; +ESTR0.022 PV; +ESTR62CR PV; +EXCETAB OR; +EXCETAB49 PO; +FETZ1CAP3 PO; +FISHCAP OR; +FOLI400T PO; +FOLITAB11 PO; +HYDR25TA6 OR; +LIDO5DIS EX; -LIDOCAINE 2% INJ 100 MG/5 ML SDV (FOR ANES.) As Ordered; +LIPI10TA OR; +LIPI10TA PO; +LISI20TA3 PO; +MAPA500T17 PO; +MELOPOW XX; +MOBI15TA PO; +MORP15TA2 PO; +MORP15TA4 OR; +MORP15TA4 PO; +MS C15TA5; +NEXI40CA PO; +NUCY100T6 PO; +OXYBPOW PO; +PERC5TAB8 PO; +PILO7.5T2 PO; +PRISTIQ OR; -PROPOFOL 200 MG/20 ML VIAL As Ordered; +PROV100T OR; +SENN8.6T5; +SOMA350T; +SOMA350T OR; +THERGRAN OR; +ULTR200T OR; +VITA-121 PO; +VITA200019 PO; +VITA50TA12 OR; +VITAMIN B6 OR; +VITAMIN C OR; +VITAMIN D OR; +VOLT1GEL EX; +ZEST20TA4 OR; +[UNRECOGNIZED DRUG - OTHER]; +hydroxychloroquine PO; +meloxicam PO; +probiotic PO; +restasis OU
--- NOTE | 2018-09-13 01:07 | ECWPNPC ---
PATIENT NAME: MELL RUIZ : 1950 GENDER: FEMALE VISIT DATE: 08/20/2018 DISCHARGE DATE: 08/20/18 1338 VISIT LOCKED DATE TIME: PHYSICIAN: COLLETTE RUIZ RESOURCE: COLLETTE RUIZ REASON FOR APPOINTMENT 1. BACK/NECK HISTORY OF PRESENT ILLNESS DEPRESSION SCREENING: PHQ-2 IN LAST TWO WEEKS HAVE YOU BEEN BOTHERED BY LITTLE INTEREST OR PLEASURE IN DOING THINGSNO FEELING DOWN, DEPRESSED, OR HOPELESSNO HISTORY OF PRESENT ILLNESS: HERE FOR F/U OF CHRONIC NECK AND LOW BACK PAIN.HAS BEEN USING CYMBALTA 30MG IN AM AND 20MG AT BEDTIME. FINDS MEDICATION SOMEWHAT EFFECTIVE.DENIES SIDE EFFECTS.RATING PAIN VAS 3/10.HAS BEEN HAVING DIFFICULTY WITH SLEEP DUE TO PAIN. STATES THAT AMITRIPTYLINE 25MG AT NIGHT HELPED FOR A SHORT TIME. DISCUSSED MEDICATION AND TREATMENT OPTIONS. PAIN THE PATIENT DESCRIBES THE PAIN... THE PATIENT DESCRIBES THE PAIN... THE PATIENT DESCRIBES THE PAIN... THE PATIENT DESCRIBES THE PAIN... FALL RISK SCREENING: SCREENING :NO FALLS IN THE PAST YEAR CURRENT MEDICATIONS TAKING OXYBUTYNIN CHLORIDE 5 MG TABLET 1 TABLET ORALLY ONCE A DAY TAKING CLOTRIMAZOLE 1 % CREAM 1 APPLICATION TO AFFECTED AREA EXTERNALLY TWICE A DAY, USE UNTIL THE REDNESS IS GONE TAKING TRIAMCINOLONE ACETONIDE 0.1 % CREAM 1 APPLICATION SPARINGLY TO AFFECTED AREA EXTERNALLY BID, USE SEVERAL HOURS AFTER THE CLOTRIMAZOLE, USE UNTIL THE REDNESS IS GONE TAKING HYDROXYCHLOROQUINE SULFATE 200 MG TABLET 1 TAB RHEUM ORALLY TWICE DAILY TAKING RESTASIS 0.05 % EMULSION 1 INTO BOTH EYES OPHTHALMIC TWICE A DAY TAKING FOLIC ACID 800 MCG TABLET 1 TAB(S) ORALLY DAILY TAKING EXCEDRIN TENSION HEADACHE 500-65 MG TABLET DIRECTED ORALLY NEEDED TAKING CALCIUM 600 600 MG TABLET 1 TABLET ORALLY DAILY TAKING FETZIMA 80 MG CAPSULE EXTENDED RELEASE 24 HOUR 1 CAPSULE ORALLY ONCE A DAY TAKING BIOTIN 5 MG TABLET 1 TABLET ORALLY ONCE A DAY TAKING FISH OIL 1400 MG CAPSULE 1 CAPSULE ORALLY ONCE A DAY TAKING ASPIRIN ADULT LOW DOSE 81 MG TABLET DELAYED RELEASE 1 TABLET ORALLY EVERY OTHER DAY TAKING VITAMIN D3 SUPER STRENGTH 2000 UNIT CAPSULE 1 CAP(S) ORALLY DAILY TAKING NYSTATIN [id number] UNIT/GM POWDER 1 APPLICATION TO AFFECTED AREA EXTERNALLY TWICE A DAY TAKING POTASSIUM 1 TAB ORAL DAILY TAKING SOMA 350 MG TABLET 1 TAB [facility] P.O. TWICE DAILY PRN MDD2 TAKING ZESTORETIC 20-25 MG TABLET 1 TABLET ORALLY ONCE A DAY TAKING NEXIUM 40 MG CAPSULE DELAYED RELEASE 1 CAP(S) ORALLY DAILY TAKING CEVIMELINE HCL 30 MG CAPSULE 1 CAPSULE ORALLY THREE TIMES A DAY TAKING VITAMIN B12 100 MCG TABLET ORALLY TAKING AMITRIPTYLINE HCL 25 MG TABLET 1 TABLET ORALLY ONCE A DAY TAKING CYMBALTA 30 MG CAPSULE DELAYED RELEASE PARTICLES 1 CAPSULE ORALLY DAILY TAKING CYMBALTA 20 MG CAPSULE DELAYED RELEASE PARTICLES 1 CAPSULE ORALLY DAILY TAKING LIPITOR 10 MG TABLET 1 TABLET ORALLY AT BEDTIME TAKING PREMARIN 0.625 MG/GM CREAM 1/2 GRAM VAGINAL TWICE WEEKLY NOT-TAKING COLACE 100 MG CAPSULE 4 CAP P.O. TWICE DAILY NOT-TAKING OXYBUTYNIN CHLORIDE TAB TAKE ONE TABLET BY MOUTH EVERY DAY NOT-TAKING TYLENOL PM EXTRA STRENGTH 500-25 MG TABLET 1 TABLET AT BEDTIME NEEDED ORALLY ONCE A DAY NOT-TAKING MECLIZINE HCL 25 MG TABLET 1 TABLETS ORALLY THREE TIMES A DAY NEEDED FOR VERTIGO NOT-TAKING VOLTAREN 1 % GEL DIRECTED EXTERNALLY EVERY 8 HOURS NEEDED NOT-TAKING BETAMETHASONE DIPROPIONATE 0.05 % LOTION 1 APPLICATION TO AFFECTED AREA EXTERNALLY TWICE A DAY PRN NOT-TAKING VITAMIN E OTC/DOSE ? CAPSULE 1 CAPSULE ORALLY DAILY NOT-TAKING VITAMIN D 2000 UNIT TABLET DIRECTED ORALLY ONCE A DAY NOT-TAKING ESTRACE 0.1 MG/GM CREAM 1 GRAM VAGINALLY 2 X WEEKLY @ [facility] MEDICATION LIST REVIEWED AND RECONCILED WITH THE PATIENT PAST MEDICAL HISTORY RAQUEL/CPAP-[facility]- [facility] HTN CHRONIC NECK PAIN - BOTOX WITH ANA CHRONIC PAIN- [facility] SLE AND SJOGREN'S- [facility]/ DR MCGOVERN FIBROMYALGIA-RHEUMATOLOGY [facility]/DR MCGOVERN GERD DEPRESSION - DR HALE Q3 MONTHLY ANEMIA OF CHRONIC DISEASE URINARY INCONTINENCE HYPERCHOLESTEROLEMIA ?BORDERLINE [facility] - DR. LINH CAZARES CATARACTS - DR. LINH CAZARES TM NUCLEAR STRESS CANNY 11/2010- LOW RISK, NML PERFUSION - TOWNSEND DEXA 04/22 MULTINODULAR THYROID ON US 2015. DIVERTICULOSIS ALLERGIES CIPRO: RASH: ALLERGY CLINORIL: RASH: ALLERGY IBUPROFEN: FACIAL SWELLING: ALLERGY WELLBUTRIN: RASH: ALLERGY PENICILLIN (FOR ALLERGIES USE ONLY): RASH: ALLERGY PRAVACHOL 10: MYALGIA: ALLERGY ADHESIVE TAPE: BLISTERS: ALLERGY SURGICAL HISTORY TONSILLECTOMY 12-11 YO D&C 1990S C-SPINE SURGERY X 2 - DR. ROMERO 1988, 2000 HYSTERECTOMY, TOTAL WITH BSO FOR BENIGN REASONS 2000 RIGHT CARPAL TUNNEL 2007 COLONOSCOPY & EGD (ROSANA) INTERNAL HEMORRHOIDS/POLYP X 1 NO ADENOMATOUS CHANGES 09/2009 L LITTLE FINGER, EXCISION OF MASS () 11/2013 LEFT BREAST BX, DUCTAL HYPERPLASIA 10/2002 EGD/COLONOSCOPY 01/2017 SOCIAL HISTORY GENERAL: TOBACCO USE ARE YOU A: NONSMOKER . BMI CARE GOAL FOLLOW-UP ABOVE NORMAL BMI FOLLOW-UPDIETARY MANAGEMENT EDUCATION, GUIDANCE, AND COUNSELING ALCOHOL SCREENING DID YOU HAVE A DRINK CONTAINING ALCOHOL IN THE PAST YEAR?NO POINTS0 INTERPRETATIONNEGATIVE RECREATIONAL DRUG USE DRUG USE?NO CAFFEINE CAFFEINE USE?YES HOW OFTEN AND HOW MUCH? 1 CUP OF COFFEE IN AM HIV / HEP-C SCREENING HIV TEST OFFERED TO PATIENT:NO HEP-C TEST OFFERED TO PATIENT:NO LANGUAGE LANGUAGES SPOKEN:VIETNAMESE LEARNING BARRIERS / SPECIAL NEEDS BARRIERS TO LEARNING?NO HEARING IMPAIRED?YES :HEARING AIDES VISION IMPAIRED?YES :CORRECTIVE LENSES COGNITIVELY IMPAIRED?NO READINESS TO LEARN?YES LEARNING PREFERENCES?NO LEARNING CAPABILITIES PRESENT?YES EMOTIONAL BARRIERS?NO SPECIAL DEVICES?NO PREPRESS OPERATOR NEEDED?NO OCCUPATION: WORKS A COUPLE DAYS A WEEK @ [employer]. DIET: REGULAR. EXERCISE: NO REGULAR EXERCISE. MARITAL STATUS: .. NEW PATIENT PAIN DIARY TODAY'S VISIT NOTES, FROM 0-10, WHAT LEVEL IS YOUR PAIN TODAY? 0. PAIN CLINIC PFS, CLERGY, PUBLIC HEALTH REFERRALS HAS THE PATIENT BEEN EDUCATED REGARDING HIS/HER PLAN OF CARE?YES HAS THE PATIENT BEEN EDUCATED REGARDING PAIN, THE RISK FOR PAIN, THE IMPORTANCE OF EFFECTIVE PAIN MANAGEMENT, AND THE PAIN ASSESSMENT PROCESS?YES ADVANCE DIRECTIVE ADVANCE DIRECTIVE DISCUSSED WITH PATIENT:YES HCP SON YESSENIA RUIZ [phone] REVIEWED WITH PT 05/31/18 1440 LAS. HOSPITALIZATION/MAJOR DIAGNOSTIC PROCEDURE RELATED TO SURGERIES LOWER GI BLEED 02/2017 REVIEW OF SYSTEMS REVIEWED BY: PROVIDER: COLLETTE LEWIS . CONSTITUTIONAL: ANY CHANGE IN YOUR MEDICAL CONDITION? NO . CHILLS NO . FEVER NO . INFECTION: DO YOU HAVE NEW INFECTIONS? NO . DO YOU HAVE HISTORY OF MRSA? NO . MUSCULOSKELETAL: ANY NEW PATTERNS OF PAIN OR NUMBNESS? NO . GASTROENTEROLOGY: ANY NEW CHANGE IN BOWEL CONTROL? NO . GENITOURINARY: ANY NEW CHANGE IN BLADDER CONTROL? NO . IS THERE A CHANCE YOU COULD BE ? NO . HEMATOLOGY/LYMPH: DO YOU TAKE ANY BLOOD THINNERS? (FOR EXAMPLE- COUMADIN, PLAVIX, AGGRENOX, PLATEL, PRADAXA, OR XARELTO) NO . WHEN WAS YOUR LAST DOSE? DATE: TIME: . NEUROLOGY: HAVE YOU FALLEN IN THE PAST 6 MONTHS? YES, FELL 3 WEEKS AGO TRIPPED ON BOX, PT DENIES SEEKING [place] . ANY NEW EXTREMITY NUMBNESS OR WEAKNESS? NO . CARDIOLOGY: DO YOU HAVE A PACEMAKER OR DEFIBRILLATOR? NO . RESPIRATORY: HAVE YOU BEEN SICK IN THE PAST WEEK? NO . FEVER NO . FLU LIKE SYMPTOMS? NO . COUGH NO . INTEGUMENTARY: DO YOU HAVE ANY RASHES OR OPEN SORES? NO . ALLERGIC/IMMUNO: ARE YOU ALLERGIC TO SHELLFISH OR IV DYE? NO . ANY NEW ALLERGIES? NO . PSYCHIATRIC: DO YOU HAVE THOUGHTS OF HURTING YOURSELF OR SOMEONE ELSE? NO . ARE YOU ABUSED, NEGLECTED, OR IN AN UNSAFE ENVIRONMENT? NO . ENDOCRINOLOGY: ARE YOU DIABETIC? NO . OTHER: DO YOU NEED ANY PRESCRIPTIONS? NO . IF YES, PLEASE LIST: ____ . ANY NEW PROBLEMS WITH YOUR MEDICATIONS? NO . WHEN DID YOU LAST EAT? ____ . WHEN DID YOU LAST DRINK? ____ . WHAT DID YOU LAST DRINK? ____ . NAME OF PERSON DRIVING YOU HOME? ____ . DO YOU HAVE ANY OTHER QUESTIONS OR CONCERNS NO . VITAL SIGNS WT 167.8 LBS, HT 60.5 IN, BMI 32.23 INDEX, BP 131/70 MM HG, HR 96 /MIN, RR 18 /MIN, TEMP 97.5 F, OXYGEN SAT % 97%, NA INITIALS AW 1306, REVIEWED BY: EM. EXAMINATION GENERAL EXAMINATION: LUNGS:LUNG SOUNDS ARE CLEAR. HEART:HEART RATE REGULAR. MUSCULOSKELETAL:*, MUSCLE STRENGTH TESTING 5/5 BILATERAL UPPER AND LOWER EXTREMITIES., PALPATION: POSITIVE FOR PAIN OVER C SPINE. POSITIVE FOR PAIN OVER CERVICAL PARASPINALS.. DIAGNOSTIC: . ASSESSMENTS CERVICALGIA - M54.2 (PRIMARY) GENERALIZED JOINT PAIN - M25.50 TREATMENT CERVICALGIA REFILL AMITRIPTYLINE HCL TABLET, 25 MG, 1 TABLET, ORALLY, ONCE A DAY, 90 DAY(S), 90 TABLET, REFILLS 2 REFILL CYMBALTA CAPSULE DELAYED RELEASE PARTICLES, 30 MG, 1 CAPSULE, ORALLY, DAILY, 90 DAY(S), 90 CAPSULE, REFILLS 2 REFILL CYMBALTA CAPSULE DELAYED RELEASE PARTICLES, 20 MG, 1 CAPSULE, ORALLY, DAILY, 90 DAY(S), 90 CAPSULE, REFILLS 2 PROCEDURE CODES FA211 ESTABILISHED PATIENT [facility] CHARGE DISPOSITION & COMMUNICATION FOLLOW UP 3 MONTHS ELECTRONICALLY SIGNED BY JOSHUA PIPER ON 09/12/2018 AT 02:06 PM EST DISCLAIMER : THIS IS A VISIT SUMMARY EXTRACTED FROM THE [employer] CHART. IT IS NOT A COPY OF THE [employer] PROGRESS NOTE. LOYDAD
== END ==
LOC: M PAIN 13:00
PROVIDERS: ATTEND Nurse Practitioner Family
DX: M54.2 Cervicalgia (principal); M25.50 Pain in unspecified joint; G47.33 Obstructive sleep apnea (adult) (pediatric); I10 Essential (primary) hypertension; M79.7 Fibromyalgia; K21.9 Gastro-esophageal reflux disease without esophagitis; F32.9 Major depressive disorder, single episode, unspecified; D63.8 Anemia in other chronic diseases classified elsewhere; R32 Unspecified urinary incontinence; E78.00 Pure hypercholesterolemia, unspecified; E04.2 Nontoxic multinodular goiter; K57.90 Diverticulosis of intestine, part unspecified, without perforation or abscess without bleeding; M35.00 Sjogren syndrome, unspecified; Z79.899 Other long term (current) drug therapy; Z88.0 Allergy status to penicillin; Z88.1 Allergy status to other antibiotic agents; Z88.6 Allergy status to analgesic agent; Z88.8 Allergy status to other drugs, medicaments and biological substances; Z91.048 Other nonmedicinal substance allergy status

== ENCOUNTER → 2018-11-19 | Outpatient (CLI) | payer MEDICARE, MEDICAID ==
[~2018-11-19] MED LIST changes: -MAPA500T17 PO; +MAPA500T2 PO
--- NOTE | 2018-12-05 01:57 | ECWPNPC ---
PATIENT NAME: MELL RUIZ : 1950 GENDER: FEMALE VISIT DATE: 11/19/2018 DISCHARGE DATE: 11/19/18 1351 VISIT LOCKED DATE TIME: PHYSICIAN: COLLETTE RUIZ RESOURCE: COLLETTE RUIZ REASON FOR APPOINTMENT 1. BACK/NECK HISTORY OF PRESENT ILLNESS HISTORY OF PRESENT ILLNESS: HERE FOR F/U OF CHRONIC NECK AND LOW BACK PAIN.HAS BEEN USING CYMBALTA 30MG IN AM AND 20MG AT BEDTIME. FINDS MEDICATION SOMEWHAT EFFECTIVE.DENIES SIDE EFFECTS.RATING PAIN VAS 3/10.HAS BEEN HAVING DIFFICULTY WITH SLEEP DUE TO PAIN. STATES THAT AMITRIPTYLINE 25MG AT NIGHT HELPS. DISCUSSED MEDICATION AND TREATMENT OPTIONS. PAIN THE PATIENT DESCRIBES THE PAIN... THE PATIENT DESCRIBES THE PAIN... THE PATIENT DESCRIBES THE PAIN... THE PATIENT DESCRIBES THE PAIN... THE PATIENT DESCRIBES THE PAIN... FALL RISK SCREENING: SCREENING : NO FALLS IN THE PAST YEAR. CURRENT MEDICATIONS TAKING OXYBUTYNIN CHLORIDE 5 MG TABLET 1 TABLET ORALLY ONCE A DAY TAKING CLOTRIMAZOLE 1 % CREAM 1 APPLICATION TO AFFECTED AREA EXTERNALLY TWICE A DAY, USE UNTIL THE REDNESS IS GONE TAKING TRIAMCINOLONE ACETONIDE 0.1 % CREAM 1 APPLICATION SPARINGLY TO AFFECTED AREA EXTERNALLY BID, USE SEVERAL HOURS AFTER THE CLOTRIMAZOLE, USE UNTIL THE REDNESS IS GONE TAKING HYDROXYCHLOROQUINE SULFATE 200 MG TABLET 1 TAB RHEUM ORALLY TWICE DAILY TAKING RESTASIS 0.05 % EMULSION 1 INTO BOTH EYES OPHTHALMIC TWICE A DAY TAKING FOLIC ACID 800 MCG TABLET 1 TAB(S) ORALLY DAILY TAKING EXCEDRIN TENSION HEADACHE 500-65 MG TABLET DIRECTED ORALLY NEEDED TAKING CALCIUM 600 600 MG TABLET 1 TABLET ORALLY DAILY TAKING FETZIMA 80 MG CAPSULE EXTENDED RELEASE 24 HOUR 1 CAPSULE ORALLY ONCE A DAY TAKING BIOTIN 5 MG TABLET 1 TABLET ORALLY ONCE A DAY TAKING ASPIRIN ADULT LOW DOSE 81 MG TABLET DELAYED RELEASE 1 TABLET ORALLY EVERY OTHER DAY TAKING VITAMIN D3 SUPER STRENGTH 2000 UNIT CAPSULE 1 CAP(S) ORALLY DAILY TAKING NYSTATIN 162410 UNIT/GM POWDER 1 APPLICATION TO AFFECTED AREA EXTERNALLY TWICE A DAY TAKING POTASSIUM 1 TAB ORAL DAILY TAKING SOMA 350 MG TABLET 1 TAB [facility] P.O. TWICE DAILY PRN MDD2 TAKING NEXIUM 40 MG CAPSULE DELAYED RELEASE 1 CAP(S) ORALLY DAILY TAKING CEVIMELINE HCL 30 MG CAPSULE 1 CAPSULE ORALLY THREE TIMES A DAY TAKING LIPITOR 10 MG TABLET 1 TABLET ORALLY AT BEDTIME TAKING PREMARIN 0.625 MG/GM CREAM 1/2 GRAM VAGINAL TWICE WEEKLY TAKING AMITRIPTYLINE HCL 25 MG TABLET 1 TABLET ORALLY ONCE A DAY TAKING CYMBALTA 30 MG CAPSULE DELAYED RELEASE PARTICLES 1 CAPSULE ORALLY DAILY TAKING CYMBALTA 20 MG CAPSULE DELAYED RELEASE PARTICLES 1 CAPSULE ORALLY DAILY TAKING ZESTORETIC 20-25 MG TABLET 1 TABLET ORALLY ONCE A DAY NOT-TAKING VITAMIN B12 100 MCG TABLET ORALLY NOT-TAKING FISH OIL 1400 MG CAPSULE 1 CAPSULE ORALLY ONCE A DAY NOT-TAKING COLACE 100 MG CAPSULE 4 CAP P.O. TWICE DAILY NOT-TAKING OXYBUTYNIN CHLORIDE TAB TAKE ONE TABLET BY MOUTH EVERY DAY NOT-TAKING TYLENOL PM EXTRA STRENGTH 500-25 MG TABLET 1 TABLET AT BEDTIME NEEDED ORALLY ONCE A DAY NOT-TAKING MECLIZINE HCL 25 MG TABLET 1 TABLETS ORALLY THREE TIMES A DAY NEEDED FOR VERTIGO NOT-TAKING VOLTAREN 1 % GEL DIRECTED EXTERNALLY EVERY 8 HOURS NEEDED NOT-TAKING BETAMETHASONE DIPROPIONATE 0.05 % LOTION 1 APPLICATION TO AFFECTED AREA EXTERNALLY TWICE A DAY PRN NOT-TAKING VITAMIN E OTC/DOSE ? CAPSULE 1 CAPSULE ORALLY DAILY NOT-TAKING VITAMIN D 2000 UNIT TABLET DIRECTED ORALLY ONCE A DAY NOT-TAKING ESTRACE 0.1 MG/GM CREAM 1 GRAM VAGINALLY 2 X WEEKLY @ [facility] MEDICATION LIST REVIEWED AND RECONCILED WITH THE PATIENT PAST MEDICAL HISTORY RAQUEL/CPAP-[place]PH[place]IA- SHILA HTN, GOAL BP <130/80 PER AHA/ACC GUIDELINES CHRONIC NECK PAIN - BOTOX WITH CATH[place]ERG CHRONIC PAIN- [facility]EM[facility] SLE AND SJOGREN'S- [facility] FIBROMYALGIA-[facility] MCGOVERN GERD DEPRESSION - DR HALE Q3 MONTHLY ANEMIA OF CHRONIC DISEASE URINARY INCONTINENCE HYPERCHOLESTEROLEMIA ?BORDERLINE GLAUCOMA - DR. LINH CAZARES CATARACTS - DR. LINH CAZARES TM NUCLEAR STRESS CANNY 11/2010- LOW RISK, NML PERFUSION - TOWNSEND MULTINODULAR THYROID ON US 2014. DIVERTICULOSIS ALLERGIES CIPRO: RASH - ALLERGY CLINORIL: RASH - ALLERGY IBUPROFEN: FACIAL SWELLING - ALLERGY WELLBUTRIN: RASH - ALLERGY PENICILLIN (FOR ALLERGIES USE ONLY): RASH - ALLERGY PRAVACHOL 10: MYALGIA - ALLERGY ADHESIVE TAPE: BLISTERS - ALLERGY SURGICAL HISTORY TONSILLECTOMY [age] YO D&C 1990S C-SPINE SURGERY X 2 - DR. ROMERO 1988, 2000 HYSTERECTOMY, TOTAL WITH BSO FOR BENIGN REASONS 2000 RIGHT CARPAL TUNNEL 2007 COLONOSCOPY & EGD (ROSANA) INTERNAL HEMORRHOIDS/POLYP X 1 NO ADENOMATOUS CHANGES 09/2009 L LITTLE FINGER, EXCISION OF MASS () 11/2013 LEFT BREAST BX, DUCTAL HYPERPLASIA 10/2002 EGD/COLONOSCOPY 01/2017 FAMILY HISTORY FATHER: 76 YRS, DIAGNOSED WITH HYPERTENSION, HEART DISEASE, DIABETES MOTHER: 93 YRS, HYPERTENSION, HEART DISEASE, DIABETES SIBLINGS: BROTHERS (3) 1 WITH CAD S/P 3VCABG; 1 WITH PROSTATE CANCER; 1 WITH WITH COLON CANCER (DX AT AGE 67), CAD S/P 3VCABG SON(S): SONS (3) - 1 OF GUN ACCIDENT, 1 WITH HTN, 1 WITH HTN AND DM SOCIAL HISTORY GENERAL: TOBACCO USE ARE YOU A: NONSMOKER . BMI CARE GOAL FOLLOW-UP ABOVE NORMAL BMI FOLLOW-UPDIETARY MANAGEMENT EDUCATION, GUIDANCE, AND COUNSELING ALCOHOL SCREENING DID YOU HAVE A DRINK CONTAINING ALCOHOL IN THE PAST YEAR?NO POINTS0 INTERPRETATIONNEGATIVE RECREATIONAL DRUG USE DRUG USE?NO CAFFEINE CAFFEINE USE?YES HOW OFTEN AND HOW MUCH? 1 CUP OF COFFEE IN AM HIV / HEP-C SCREENING HIV TEST OFFERED TO PATIENT:NO HEP-C TEST OFFERED TO PATIENT:NO LANGUAGE LANGUAGES SPOKEN:PORTUGUESE LEARNING BARRIERS / SPECIAL NEEDS BARRIERS TO LEARNING?NO HEARING IMPAIRED?YES :HEARING AIDES VISION IMPAIRED?YES :CORRECTIVE LENSES COGNITIVELY IMPAIRED?NO READINESS TO LEARN?YES LEARNING PREFERENCES?NO LEARNING CAPABILITIES PRESENT?YES EMOTIONAL BARRIERS?NO SPECIAL DEVICES?NO BONDING AGENT NEEDED?NO OCCUPATION: WORKS A COUPLE DAYS A WEEK @ [email or web address]. DIET: REGULAR. EXERCISE: NO REGULAR EXERCISE. MARITAL STATUS: .. NEW PATIENT PAIN DIARY TODAY'S VISIT NOTES, FROM 0-10, WHAT LEVEL IS YOUR PAIN TODAY? 0. PAIN CLINIC PFS, CLERGY, PUBLIC HEALTH REFERRALS HAS THE PATIENT BEEN EDUCATED REGARDING HIS/HER PLAN OF CARE?YES HAS THE PATIENT BEEN EDUCATED REGARDING PAIN, THE RISK FOR PAIN, THE IMPORTANCE OF EFFECTIVE PAIN MANAGEMENT, AND THE PAIN ASSESSMENT PROCESS?YES ADVANCE DIRECTIVE ADVANCE DIRECTIVE DISCUSSED WITH PATIENT:YES HCP SON CAROLYNE RUIZ [phone] REVIEWED WITH PT 05/31/18 1440 LAS. HOSPITALIZATION/MAJOR DIAGNOSTIC PROCEDURE RELATED TO SURGERIES LOWER GI BLEED 02/2017 REVIEW OF SYSTEMS REVIEWED BY: PROVIDER: COLLETTE LEWIS . CONSTITUTIONAL: ANY CHANGE IN YOUR MEDICAL CONDITION? NO . CHILLS NO . FEVER NO . INFECTION: DO YOU HAVE NEW INFECTIONS? NO . DO YOU HAVE HISTORY OF MRSA? NO . MUSCULOSKELETAL: ANY NEW PATTERNS OF PAIN OR NUMBNESS? NO . GASTROENTEROLOGY: ANY NEW CHANGE IN BOWEL CONTROL? NO . GENITOURINARY: ANY NEW CHANGE IN BLADDER CONTROL? YES, DIFFICULTY IN EMPTYING BLADDER . IS THERE A CHANCE YOU COULD BE ? NO . HEMATOLOGY/LYMPH: DO YOU TAKE ANY BLOOD THINNERS? (FOR EXAMPLE- COUMADIN, PLAVIX, AGGRENOX, PLATEL, PRADAXA, OR XARELTO) NO . WHEN WAS YOUR LAST DOSE? DATE: TIME: . NEUROLOGY: HAVE YOU FALLEN IN THE PAST 12 MONTHS? YES, PRIOR TO LAST VISIT . ANY NEW EXTREMITY NUMBNESS OR WEAKNESS? NO . CARDIOLOGY: DO YOU HAVE A PACEMAKER OR DEFIBRILLATOR? NO . RESPIRATORY: HAVE YOU BEEN SICK IN THE PAST WEEK? NO . FEVER NO . FLU LIKE SYMPTOMS? NO . COUGH NO . INTEGUMENTARY: DO YOU HAVE ANY RASHES OR OPEN SORES? NO . ALLERGIC/IMMUNO: ARE YOU ALLERGIC TO IV DYE? NO . ANY NEW ALLERGIES? NO . PSYCHIATRIC: DO YOU HAVE THOUGHTS OF HURTING YOURSELF OR SOMEONE ELSE? NO . ARE YOU ABUSED, NEGLECTED, OR IN AN UNSAFE ENVIRONMENT? NO . ENDOCRINOLOGY: ARE YOU DIABETIC? NO . OTHER: DO YOU NEED ANY PRESCRIPTIONS? YES, CYMBALTA, AMITRYPTILINE . IF YES, PLEASE LIST: ____ . ANY NEW PROBLEMS WITH YOUR MEDICATIONS? NO . WHEN DID YOU LAST EAT? ____ . WHEN DID YOU LAST DRINK? ____ . WHAT DID YOU LAST DRINK? ____ . NAME OF PERSON DRIVING YOU HOME? ____ . DO YOU HAVE ANY OTHER QUESTIONS OR CONCERNS NO . VITAL SIGNS WT 172 LBS, HT 60.5 IN, BMI 33.03 INDEX, BP 145/79 MM HG, HR 92 /MIN, RR 16 /MIN, TEMP 97.0 F, OXYGEN SAT % 96, REVIEWED BY: EM. EXAMINATION GENERAL EXAMINATION: LUNGS:LUNG SOUNDS ARE CLEAR. HEART:HEART RATE REGULAR. MUSCULOSKELETAL:*, MUSCLE STRENGTH TESTING 5/5 BILATERAL UPPER AND LOWER EXTREMITIES., PALPATION: POSITIVE FOR PAIN OVER C SPINE. POSITIVE FOR PAIN OVER CERVICAL PARASPINALS.. DIAGNOSTIC: . ASSESSMENTS CERVICALGIA - M54.2 (PRIMARY) GENERALIZED JOINT PAIN - M25.50 TREATMENT CERVICALGIA REFILL SOMA TABLET, 350 MG, 1 TAB [facility], P.O., TWICE DAILY PRN MDD2, 30 DAY(S), 30, REFILLS 2 REFILL AMITRIPTYLINE HCL TABLET, 25 MG, 1 TABLET, ORALLY, ONCE A DAY, 90 DAY(S), 90 TABLET, REFILLS 2 REFILL CYMBALTA CAPSULE DELAYED RELEASE PARTICLES, 30 MG, 1 CAPSULE, ORALLY, DAILY, 90 DAY(S), 90 CAPSULE, REFILLS 2 REFILL CYMBALTA CAPSULE DELAYED RELEASE PARTICLES, 20 MG, 1 CAPSULE, ORALLY, DAILY, 90 DAY(S), 90 CAPSULE, REFILLS 2 NOTES: ISTOP REGISTRY REVIEWED AND DEMONSTRATES COMPLLIANCE. . PROCEDURE CODES FA211 ESTABILISHED PATIENT [facility] CHARGE DISPOSITION & COMMUNICATION FOLLOW UP 3 MONTHS ELECTRONICALLY SIGNED BY JOSHUA PIPER ON 12/03/2018 AT 04:04 PM EDT DISCLAIMER : THIS IS A VISIT SUMMARY EXTRACTED FROM THE [employer] CHART. IT IS NOT A COPY OF THE [employer] PROGRESS NOTE. LOYDAD
== END ==
LOC: M PAIN 13:00
PROVIDERS: ATTEND Nurse Practitioner Family
DX: M54.2 Cervicalgia (principal); M54.5 Low back pain; G89.29 Other chronic pain; I10 Essential (primary) hypertension; G47.33 Obstructive sleep apnea (adult) (pediatric); M35.00 Sjogren syndrome, unspecified; M79.7 Fibromyalgia; F32.9 Major depressive disorder, single episode, unspecified; K21.9 Gastro-esophageal reflux disease without esophagitis; Z79.82 Long term (current) use of aspirin; Z79.891 Long term (current) use of opiate analgesic; Z79.899 Other long term (current) drug therapy; Z88.0 Allergy status to penicillin; Z88.1 Allergy status to other antibiotic agents; Z88.6 Allergy status to analgesic agent; Z88.8 Allergy status to other drugs, medicaments and biological substances; Z91.09 Other allergy status, other than to drugs and biological substances

== ENCOUNTER 2019-01-23 12:15 | Emergency (ER) | payer MEDICARE, MEDICAID ==
[~2019-01-23] VITALS: Ht 152.4 cm; Wt 72.3 kg
[~2019-01-23 12:15] MED LIST changes: -ATOR1TAB19
[2019-01-23] MEDS ORDERED: ATOR1TAB19 (12:31)
[2019-01-23] MEDS ORDERED: PERCOCET 5MG/325MG TAB PO ONE (13:45)
[2019-01-23 13:46] VITALS: BP 122/65
== END 2019-01-23 13:47 | disposition home or self-care (01) ==
LOC: M ED 12:15
DX: K86.9 Disease of pancreas, unspecified (principal); I10 Essential (primary) hypertension; E78.5 Hyperlipidemia, unspecified; R51 Headache; G47.30 Sleep apnea, unspecified; F41.9 Anxiety disorder, unspecified; F32.9 Major depressive disorder, single episode, unspecified; Z79.82 Long term (current) use of aspirin; Z79.899 Other long term (current) drug therapy; Z88.0 Allergy status to penicillin; Z88.6 Allergy status to analgesic agent; Z88.8 Allergy status to other drugs, medicaments and biological substances; Z91.040 Latex allergy status
CPT/HCPCS: 36415; 74177; 80053; 83615; 83690; 85025; 86301; 99283; G0463; Q9963; Q9967

== ENCOUNTER → 2019-01-23 | Outpatient (CLI) | payer MEDICARE, MEDICAID ==
[~2019-01-23] MED LIST changes: -/ESOM40CA OR; -ASPI1TAB PO; +ASPI81TA26 PO; +ATOR1TAB19; +CYMB1CAP4 PO; +CYMB1CAP5 PO; +EXCETAB44 PO; +FERR325T3 PO; +GASTROGRAFIN SOLUTION 30ML (Q9963) As Ordered ONE; +ISOVUE-370 76% 100ML VIAL (Q9967) As Ordered ONE; +NEXI1CAP3 OR
[2019-01-23 10:18] LABS: BASO % 0.3 % (0.0-1.0); EOS % 0.2 % (0.0-3.0); HEMATOCRIT 30.1 % (36.0-47.0); HEMOGLOBIN 9.7 g/dl (12.0-15.5); LYMPH # 1.2 10^3/uL (1.5-4.5); LYMPH % 7.5 % (24.0-44.0); MEAN CORPUSCULAR HEMOGLOBIN 25.9 pg (27.0-33.0); MEAN CORPUSCULAR HGB CONC 32.2 g/dl (32.0-36.5); MEAN CORPUSCULAR VOLUME 80.5 fl (80.0-96.0); MONO # 1.3 10^3/uL (0.0-0.8); MONO % 8.5 % (0.0-5.0); NEUTROPHILS % 83.1 % (36.0-66.0); PLATELET COUNT, AUTOMATED 411 10^3/uL (150-450); RED BLOOD COUNT 3.74 10^6/uL (4.00-5.40); WHITE BLOOD COUNT 15.6 10^3/uL (4.0-10.0)
[2019-01-23 10:48] LABS: ALBUMIN 3.5 GM/DL (3.2-5.2); BILIRUBIN,TOTAL 0.5 MG/DL (0.2-1.0); CALCIUM LEVEL 8.8 MG/DL (8.8-10.2); CREATININE FOR GFR 1.06 MG/DL (0.55-1.30); GLOMERULAR FILTRATION RATE 54.6 (>39); POTASSIUM SERUM 3.7 MEQ/L (3.5-5.1); TOTAL PROTEIN 7.1 GM/DL (6.4-8.2)
--- NOTE | 2019-01-23 12:05 | REP ---
CT of the abdomen and pelvis with IV contrast and with bowel contrast for epigastric pain: Comparison is 01/22/2007. The visualized lung souza are unremarkable. The hepatic parenchyma is homogeneous. I suspect there is a 3.1 x 2.5 cm hypodense mass in the pancreatic uncinate process as an interval change. I would recommend pancreatic MRI for confirmation. The pancreatic duct is not dilated. There is no peripancreatic phlegmon. The The gallbladder and spleen are normal size and unremarkable. The right adrenal is unremarkable. There is a low density left adrenal mass containing calcifications measuring 18 mm in maximal diameter. This has decreased in size maximally measuring 28 mm previously. The kidneys and abdominal aorta are unchanged unremarkable. There is no bowel distension or obstruction. There are no inflammatory changes in the mesentery. There is no mesenteric mass or adenopathy. Pelvis: There is no ascites or adenopathy. There is a hysterectomy. Vaginal cuff and adnexa are unremarkable. The bladder is unremarkable. Impression: Hypodense mass in the pancreatic uncinate process. Followup MRI is recommended for confirmation. Chronic left adrenal mass containing calcifications, this has decreased in size. Electronically Signed by Efren Mejia MD 01/23/2019 11:57 A
== END ==
LOC: M RAD 09:44
PROVIDERS: ATTEND Obstetrics & Gynecology
DX: E27.9 Disorder of adrenal gland, unspecified (principal); R10.13 Epigastric pain
CPT/HCPCS: 36415; 74177; 80053; 83615; 83690; 85025; 86301; Q9963; Q9967

== ENCOUNTER → 2019-01-23 | Outpatient (REF) | payer MEDICARE, MEDICAID ==
[~2019-01-23] MED LIST changes: -GASTROGRAFIN SOLUTION 30ML (Q9963) As Ordered ONE; -ISOVUE-370 76% 100ML VIAL (Q9967) As Ordered ONE
== END ==
LOC: M SFHCPLAZ 12:33
PROVIDERS: ATTEND Family Medicine
DX: R10.13 Epigastric pain (principal)

== ENCOUNTER → 2019-02-15 | Outpatient (CLI) | payer MEDICARE, MEDICAID ==
[~2019-02-15] MED LIST changes: +ATOR1TAB19
== END ==
LOC: M PAIN 13:00
PROVIDERS: ATTEND Nurse Practitioner Family
DX: M54.2 Cervicalgia (principal); M25.50 Pain in unspecified joint; G89.29 Other chronic pain; G47.33 Obstructive sleep apnea (adult) (pediatric); I10 Essential (primary) hypertension; M79.7 Fibromyalgia; K21.9 Gastro-esophageal reflux disease without esophagitis; Z86.59 Personal history of other mental and behavioral disorders; E78.00 Pure hypercholesterolemia, unspecified; Z88.0 Allergy status to penicillin; Z88.1 Allergy status to other antibiotic agents; Z88.6 Allergy status to analgesic agent; Z88.8 Allergy status to other drugs, medicaments and biological substances; Z91.09 Other allergy status, other than to drugs and biological substances; Z79.899 Other long term (current) drug therapy

== ENCOUNTER → 2019-05-17 | Outpatient (CLI) | payer MEDICARE, MEDICAID ==
[~2019-05-17] MED LIST changes: +LISI20TA20 PO; -LISI20TA3 PO
--- NOTE | 2019-05-30 01:51 | ECWPNPC ---
PATIENT NAME: MELL RUIZ : 1950 GENDER: FEMALE VISIT DATE: 05/17/2019 DISCHARGE DATE: 05/17/19 0000 VISIT LOCKED DATE TIME: PHYSICIAN: COLLETTE RUIZ RESOURCE: COLLETTE RUIZ REASON FOR APPOINTMENT 1. 3 MONTHS HISTORY OF PRESENT ILLNESS HISTORY OF PRESENT ILLNESS: HERE FOR F/U OF CHRONIC NECK AND LOW BACK PAIN.HAS BEEN USING CYMBALTA 30MG IN AM .RATING PAIN VAS 3/10.HAS BEEN HAVING DIFFICULTY WITH SLEEP DUE TO PAIN. STATES THAT AMITRIPTYLINE 25MG AT NIGHT HELPS. DISCUSSED MEDICATION AND TREATMENT OPTIONS. PAIN THE PATIENT DESCRIBES THE PAIN... THE PATIENT DESCRIBES THE PAIN... THE PATIENT DESCRIBES THE PAIN... THE PATIENT DESCRIBES THE PAIN... THE PATIENT DESCRIBES THE PAIN... THE PATIENT DESCRIBES THE PAIN... THE PATIENT DESCRIBES THE PAIN... FALL RISK SCREENING: SCREENING :NO FALLS REPORTED IN THE LAST YEAR CURRENT MEDICATIONS TAKING HYDROXYCHLOROQUINE SULFATE 200 MG TABLET 1 TAB RHEUM ORALLY TWICE DAILY TAKING FOLIC ACID 800 MCG TABLET 1 TAB(S) ORALLY DAILY TAKING CALCIUM 600 600 MG TABLET 1 TABLET ORALLY DAILY TAKING FETZIMA 80 MG CAPSULE EXTENDED RELEASE 24 HOUR 1 CAPSULE ORALLY ONCE A DAY TAKING BIOTIN 5 MG TABLET 1 TABLET ORALLY ONCE A DAY TAKING VITAMIN D3 SUPER STRENGTH 2000 UNIT CAPSULE 1 CAP(S) ORALLY DAILY TAKING NEXIUM 40 MG CAPSULE DELAYED RELEASE 1 CAP(S) ORALLY DAILY TAKING CEVIMELINE HCL 30 MG CAPSULE 1 CAPSULE ORALLY THREE TIMES A DAY TAKING POTASSIUM 1 TAB ORAL DAILY TAKING ZESTORETIC 20-25 MG TABLET 1 TABLET ORALLY ONCE A DAY TAKING OXYBUTYNIN CHLORIDE 5 MG TABLET 1 TABLET ORALLY ONCE A DAY TAKING AMITRIPTYLINE HCL 25 MG TABLET 1 TABLET ORALLY ONCE A DAY TAKING CYMBALTA 30 MG CAPSULE DELAYED RELEASE PARTICLES 1 CAPSULE ORALLY DAILY TAKING LIPITOR 10 MG TABLET 1 TABLET ORALLY AT BEDTIME TAKING FERROUS SULFATE 325 (65 FE) MG TABLET 1 TABLET ORALLY EVERY OTHER DAY TAKING ZINC _ TABLET 1 TABLET ORALLY ONCE A DAY, NOTES: UNSURE OF DOSE TAKING VITAMIN E _ CAPSULE 1 CAPSULE ORALLY ONCE A DAY, NOTES: UNSURE OF DOSE NOT-TAKING CLOTRIMAZOLE 1 % CREAM 1 APPLICATION TO AFFECTED AREA EXTERNALLY TWICE A DAY, USE UNTIL THE REDNESS IS GONE NOT-TAKING TRIAMCINOLONE ACETONIDE 0.1 % CREAM 1 APPLICATION SPARINGLY TO AFFECTED AREA EXTERNALLY BID, USE SEVERAL HOURS AFTER THE CLOTRIMAZOLE, USE UNTIL THE REDNESS IS GONE, NOTES: NEEDED NOT-TAKING RESTASIS 0.05 % EMULSION 1 INTO BOTH EYES OPHTHALMIC TWICE A DAY NOT-TAKING EXCEDRIN TENSION HEADACHE 500-65 MG TABLET DIRECTED ORALLY NEEDED NOT-TAKING NYSTATIN [id number] UNIT/GM POWDER 1 APPLICATION TO AFFECTED AREA EXTERNALLY TWICE A DAY NOT-TAKING COLACE 100 MG CAPSULE 1 CAPSULE NEEDED ORALLY ONCE A DAY NOT-TAKING PREMARIN 0.625 MG/GM CREAM 1/2 GRAM VAGINAL TWICE WEEKLY NOT-TAKING SOMA 350 MG TABLET 1 TAB [facility] P.O. TWICE DAILY PRN MDD2 MEDICATION LIST REVIEWED AND RECONCILED WITH THE PATIENT PAST MEDICAL HISTORY RAQUEL/CPAP-STEPHAN[place]- SHILA HTN, GOAL BP < 130/80 PER AHA/ACC GUIDELINES CHRONIC NECK PAIN - BOTOX WITH [place] CHRONIC PAIN- [facility] PAIN [facility] SLE AND SJOGREN'S- RHEUMATOLOGY [facility]/ DR MCGOVERN FIBROMYALGIA-RHEUMATOLOGY [facility]/DR MCGOVERN GERD DEPRESSION - DR HALE Q3 MONTHLY ANEMIA OF CHRONIC DISEASE URINARY INCONTINENCE HYPERCHOLESTEROLEMIA ?BORDERLINE GLAUCOMA - DR. ALARCON CATARACTS - DR. ALARCON TM NUCLEAR STRESS CANNY 11/2010- LOW RISK, NML PERFUSION - TOWNSEND MULTINODULAR THYROID ON US 2014. DIVERTICULOSIS ALLERGIES CIPRO: RASH - ALLERGY CLINORIL: RASH - ALLERGY IBUPROFEN: FACIAL SWELLING - ALLERGY WELLBUTRIN: RASH - ALLERGY PENICILLIN (FOR ALLERGIES USE ONLY): RASH - ALLERGY PRAVACHOL 10: MYALGIA - ALLERGY ADHESIVE TAPE: BLISTERS - ALLERGY SURGICAL HISTORY TONSILLECTOMY [age] YO D&C C-SPINE SURGERY X 2 - DR. ROMERO 1988, 2000 HYSTERECTOMY, TOTAL WITH BSO FOR BENIGN REASONS 2000 RIGHT CARPAL TUNNEL 2007 COLONOSCOPY & EGD (ROSANA) INTERNAL HEMORRHOIDS/POLYP X 1 NO ADENOMATOUS CHANGES 09/2009 L LITTLE FINGER, EXCISION OF MASS () 11/2013 LEFT BREAST BX, DUCTAL HYPERPLASIA 10/2002 EGD/COLONOSCOPY 01/2017, 2018 BILATERAL CATERACT SURGERY 2018 FAMILY HISTORY FATHER: 76 YRS, DIAGNOSED WITH DIABETES, HYPERTENSION, UNSPECIFIED HEART DISEASE MOTHER: 93 YRS, DIABETES, HYPERTENSION, UNSPECIFIED HEART DISEASE SIBLINGS: BROTHERS (3) 1 WITH CAD S/P 3VCABG; 1 WITH PROSTATE CANCER; 1 WITH WITH COLON CANCER (DX AT AGE 67), CAD S/P 3VCABG SON(S): SONS (3) - 1 OF GUN ACCIDENT, 1 WITH HTN, 1 WITH HTN AND DM SOCIAL HISTORY GENERAL: TOBACCO USE ARE YOU A: NONSMOKER. HIV / HEP-C SCREENING HIV TEST OFFERED TO PATIENT:NO HEP-C TEST OFFERED TO PATIENT:NO DIET: REGULAR. LANGUAGE LANGUAGES SPOKEN:PARAGUAYAN NEW PATIENT PAIN DIARY TODAY'S VISIT NOTES, FROM 0-10, WHAT LEVEL IS YOUR PAIN TODAY? 0. BMI CARE GOAL FOLLOW-UP ABOVE NORMAL BMI FOLLOW-UPDIETARY MANAGEMENT EDUCATION, GUIDANCE, AND COUNSELING RECREATIONAL DRUG USE DRUG USE?NO EXERCISE: NO REGULAR EXERCISE. LEARNING BARRIERS / SPECIAL NEEDS CHANGE FROM LAST VISIT?NO BARRIERS TO LEARNING?NO HEARING IMPAIRED?YES VISION IMPAIRED?YES COGNITIVELY IMPAIRED?NO :HEARING AIDES :CORRECTIVE LENSES READINESS TO LEARN?YES LEARNING PREFERENCES?NO LEARNING CAPABILITIES PRESENT?YES EMOTIONAL BARRIERS?NO SPECIAL DEVICES?NO BARBERING INSTRUCTOR NEEDED?NO PAIN CLINIC PFS, CLERGY, PUBLIC HEALTH REFERRALS HAS THE PATIENT BEEN EDUCATED REGARDING HIS/HER PLAN OF CARE?YES HAS THE PATIENT BEEN EDUCATED REGARDING PAIN, THE RISK FOR PAIN, THE IMPORTANCE OF EFFECTIVE PAIN MANAGEMENT, AND THE PAIN ASSESSMENT PROCESS?YES LATEX QUESTIONNAIRE LATEX ALLERGY : HAVE YOU EVER DEVELOPED ANY TYPE OF REACTION AFTER HANDLING LATEX PRODUCTS SUCH RUBBER GLOVES, CONDOMS, DIAPHRAGMS, BALLOONS, SOCKS, OR UNDERWEAR?NO LATEX ALLERGY : HAVE YOU EVER DEVELOPED ANY TYPE OF REACTION DURING OR AFTER DENTAL APPOINTMENT, VAGINAL/RECTAL EXAMINATION, SURGICAL PROCEDURE, OR ANY OTHER EXPOSURE?NO DATE ASKED : 02/12/2019 LATEX RISK : HAVE YOU EVER HAD ANY DIFFICULTY BREATHING OR HIVES AFTER EATING OR HANDLING ANY FRUITS, OR VEGETABLES; SUCH KIWI, BANANAS, STONE FRUITS, OR CHESTNUTSNO LATEX RISK : DO YOU HAVE A PREVIOUS PERSONAL HISTORY OF MORE THAN NINE SURGERIES, SPINA BIFIDA, OR REPEATED CATHERIZATIONS? NO LATEX RISK : ARE YOU FREQUENTLY EXPOSED TO LATEX PRODUCTS IN YOUR OCCUPATION?NO CAFFEINE CAFFEINE USE?YES HOW OFTEN AND HOW MUCH? 1 CUP OF COFFEE IN AM ADVANCE DIRECTIVE ADVANCE DIRECTIVE DISCUSSED WITH PATIENT:YES HCP SON CAROLYNE RUIZ [phone] MARITAL STATUS: .. ALCOHOL SCREENING DID YOU HAVE A DRINK CONTAINING ALCOHOL IN THE PAST YEAR?NO POINTS0 INTERPRETATIONNEGATIVE OCCUPATION: WORKS A COUPLE DAYS A WEEK @ [employer]. SEXUAL HX HAD SEX IN THE LAST 12 MONTHS (VAGINAL, ORAL, OR ANAL)?NO LMP:HYSTER HAVE YOU EVER HAD AN STD?NO REVIEWED WITH PT 05/31/18 1440 LASREVIEWED WITH PT 02/15/19 1315 LASREVIEWED WITH PATIENT 05/17/19 LAS. HOSPITALIZATION/MAJOR DIAGNOSTIC PROCEDURE RELATED TO SURGERIES LOWER GI BLEED 02/2017 REVIEW OF SYSTEMS REVIEWED BY: PROVIDER: COLLETTE LEWIS . CONSTITUTIONAL: ANY CHANGE IN YOUR MEDICAL CONDITION? NO . CHILLS NO . FEVER NO . INFECTION: DO YOU HAVE NEW INFECTIONS? NO . DO YOU HAVE HISTORY OF MRSA? NO . MUSCULOSKELETAL: ANY NEW PATTERNS OF PAIN OR NUMBNESS? NO . GASTROENTEROLOGY: ANY NEW CHANGE IN BOWEL CONTROL? NO . GENITOURINARY: ANY NEW CHANGE IN BLADDER CONTROL? NO . IS THERE A CHANCE YOU COULD BE ? NO . HEMATOLOGY/LYMPH: DO YOU TAKE ANY BLOOD THINNERS? (FOR EXAMPLE- COUMADIN, PLAVIX, AGGRENOX, PLATEL, PRADAXA, OR XARELTO) NO . WHEN WAS YOUR LAST DOSE? DATE: TIME: . NEUROLOGY: HAVE YOU FALLEN IN THE PAST 12 MONTHS? NO . ANY NEW EXTREMITY NUMBNESS OR WEAKNESS? NO . CARDIOLOGY: DO YOU HAVE A PACEMAKER OR DEFIBRILLATOR? NO . RESPIRATORY: HAVE YOU BEEN SICK IN THE PAST WEEK? NO . FEVER NO . FLU LIKE SYMPTOMS? NO . COUGH NO . INTEGUMENTARY: DO YOU HAVE ANY RASHES OR OPEN SORES? NO . ALLERGIC/IMMUNO: ARE YOU ALLERGIC TO IV DYE? NO . ANY NEW ALLERGIES? NO . PSYCHIATRIC: DO YOU HAVE THOUGHTS OF HURTING YOURSELF OR SOMEONE ELSE? NO . ARE YOU ABUSED, NEGLECTED, OR IN AN UNSAFE ENVIRONMENT? NO . ENDOCRINOLOGY: ARE YOU DIABETIC? NO . OTHER: DO YOU NEED ANY PRESCRIPTIONS? NO . IF YES, PLEASE LIST: ____ . ANY NEW PROBLEMS WITH YOUR MEDICATIONS? NO . WHEN DID YOU LAST EAT? ____ . WHEN DID YOU LAST DRINK? ____ . WHAT DID YOU LAST DRINK? ____ . NAME OF PERSON DRIVING YOU HOME? ____ . DO YOU HAVE ANY OTHER QUESTIONS OR CONCERNS NO . VITAL SIGNS WT 153 LBS, HT 60.5 IN, BMI 29.39 INDEX, BP 131/53 MM HG, HR 100 /MIN, RR 18 /MIN, TEMP 96.0 F, OXYGEN SAT % 99%, SAFE IN ENV? (Y/N) YES, NA INITIALS AW 1316, REVIEWED BY: IRA. EXAMINATION GENERAL EXAMINATION: GENERALAWAKE,ALERT ,PLEAASANT . PSYCHAFFECT NORMAL . LUNGS:LUNG MI ARE CLEAR TO AUSCULTATION BILATERALLY. GOOD MOVEMENT OF AIR . HEART:S1, S2 IN A REGULAR RATE AND RHYTHM. NO SIGNIFICANT MURMURS, RUBS OR GALLOPS NOTED . ASSESSMENTS CERVICALGIA - M54.2 (PRIMARY) GENERALIZED JOINT PAIN - M25.50 TREATMENT CERVICALGIA CONTINUE CYMBALTA CAPSULE DELAYED RELEASE PARTICLES, 30 MG, 1 CAPSULE, ORALLY, DAILY [facility]FERRAL [facility] RE[facility]ON:CHRONIC NECK PAIN W HX OF 2 CERVICAL SURGERIES IN DISTANT PAST PROCEDURE CODES FA211 ESTABILISHED PATIENT [facility] FACILITY CHARGE DISPOSITION & COMMUNICATION FOLLOW UP PT WILL CALL IF NEEDED (REASON: [facility]) ELECTRONICALLY SIGNED BY JOSHUA PIPER ON 05/29/2019 AT 01:35 PM EDT DISCLAIMER : THIS IS A VISIT SUMMARY EXTRACTED FROM THE [employer] CHART. IT IS NOT A COPY OF THE [employer] PROGRESS NOTE. MTDD
== END ==
LOC: M PAIN 13:00
PROVIDERS: ATTEND Nurse Practitioner Family
DX: M54.2 Cervicalgia (principal); M25.50 Pain in unspecified joint; G89.29 Other chronic pain; G47.33 Obstructive sleep apnea (adult) (pediatric); I10 Essential (primary) hypertension; M79.7 Fibromyalgia; K21.9 Gastro-esophageal reflux disease without esophagitis; Z86.59 Personal history of other mental and behavioral disorders; D50.9 Iron deficiency anemia, unspecified; E78.00 Pure hypercholesterolemia, unspecified; Z88.0 Allergy status to penicillin; Z88.1 Allergy status to other antibiotic agents; Z88.6 Allergy status to analgesic agent; Z88.8 Allergy status to other drugs, medicaments and biological substances; Z91.09 Other allergy status, other than to drugs and biological substances; Z79.899 Other long term (current) drug therapy

== ENCOUNTER → 2019-09-05 | Outpatient (CLI) | payer MEDICARE, MEDICAID ==
--- NOTE | 2019-09-05 13:44 | REPMRS ---
Patient History The patient states she has not had a clinical breast exam in over a year. Patient is postmenopausal. Family history of prostate cancer at age 68 in brother, colorectal cancer at age 68 in brother. Benign excisional biopsy of the right breast, 2000. Took estrogen for 9 years 6 months. 3D TOMOSYNTHESIS WAS PERFORMED. The [facility] lifetime risk for breast cancer is 3.9%. Digital Woman Screen Mammo: September 05, 2019 - Exam #: [id number] Bilateral CC and MLO view(s) were taken. Technologist: Aixa Dejesus, Technologist Prior study comparison: June 22, 2018, bilateral digital woman screen mammo performed at [facility]. June 19, 2017, digital woman screen mammo performed at [facility]. FINDINGS: There are scattered fibroglandular densities. There has been no change in the appearance of the mammogram from the prior studies. There is a mild amount of residual fibroglandular tissue which is fairly symmetric. There is no interval development of dominant mass, architectural distortion, or clustered microcalcification suggestive of malignancy. Assessment: BI-RADS/ACR category 1 mammogram. Negative Mammogram. Recommendation Routine screening mammogram in 1 year (for women over age 40). This mammogram was interpreted with the aid of an FDA-approved computer-aided dectection system. Electronically Signed By: Efren Willett MD 09/05/19 2237
--- NOTE | 2019-09-09 13:40 | DEXA ---
AP SPINE L1 - L4 1.091 -0.8 0.8 LT FEMUR TOTAL 0.988 -0.2 1.4 LT NECK 0.854 -1.3 0.4 RT FEMUR TOTAL 0.947 -0.5 1.0 RT NECK 0.789 -1.8 -0.1 TOTAL BODY TOTAL OTHER COMMENTS: Normal bone densitometry of the spine. There is low bone density of the hips. The decreased density of the spine does not represent a significant change. The decreased density of the left hip does represent a significant change. The decreased density of the right hip does not represent a significant change. The density of the spine has decreased 6.4% since the initial exam on 07/16/2003. The spine density has decreased 0.5% since the most recent exam on 03/22/2017. The density of the left hip has decreased 6.1% since the initial exam on 07/16/2003. The density of the left hip has decreased 2.7% since the most recent exam on 03/22/2017. The density of the right hip has decreased 7.4% since the initial exam on 07/16/2003. The density of the right hip has decreased 1.8% since the most recent exam on 03/22/2017. FOLLOW-UP: Recommendation for the next bone density exam: 2 years. GENE
== END ==
LOC: M WHC 12:54
PROVIDERS: ATTEND Nurse Practitioner Women's Health
DX: Z12.31 Encounter for screening mammogram for malignant neoplasm of breast (principal); Z78.0 Asymptomatic menopausal state; M81.0 Age-related osteoporosis without current pathological fracture; Z80.0 Family history of malignant neoplasm of digestive organs

== ENCOUNTER → 2020-12-11 | Outpatient (CLI) | payer MEDICARE, MEDICAID ==
[~2020-12-11] MED LIST changes: -AMIT10TA PO; +AMIT10TA7 PO; +FOLI400T13 PO
--- NOTE | 2020-12-11 15:32 | REPMRS ---
Patient History The patient states she has not had a clinical breast exam in over a year. Family history of prostate cancer at age 68 in brother, colorectal cancer at age 68 in brother. Benign excisional biopsy of the right breast, 1999. Took estrogen for 9 years 6 months. 3D TOMOSYNTHESIS WAS PERFORMED. [facility] lifetime risk for breast cancer is 3.4%. Volpara breast density b. Digital Woman Screen Mammo: December 11, 2020 - Exam #: [id number] Bilateral CC and MLO view(s) were taken. Technologist: Mariah Hardwick Technologist Prior study comparison: September 05, 2019, bilateral digital woman screen mammo performed at [facility]. June 22, 2018, bilateral digital woman screen mammo performed at [facility]. FINDINGS: There are scattered fibroglandular densities. There has been no change in the appearance of the mammogram from the prior studies. There is a mild amount of residual fibroglandular tissue which is fairly symmetric. There is no interval development of dominant mass, architectural distortion, or clustered microcalcification suggestive of malignancy. Assessment: BI-RADS/ACR category 1 mammogram. Negative Mammogram. Recommendation Routine screening mammogram in 1 year (for women over age 40). This mammogram was interpreted with the aid of an FDA-approved computer-aided dectection system. Electronically Signed By: Efren Willett MD 12/11/20 [id number]
== END ==
LOC: M WHC 13:25
PROVIDERS: ATTEND Nurse Practitioner Women's Health
DX: Z12.31 Encounter for screening mammogram for malignant neoplasm of breast (principal); Z80.0 Family history of malignant neoplasm of digestive organs; Z86.018 Personal history of other benign neoplasm

== ENCOUNTER → 2021-01-14 | Outpatient (REF) | payer MEDICARE, MEDICAID | LOC: M SFHCPLAZ 17:25 | PROVIDERS: ATTEND Family Medicine | DX: L57.0 Actinic keratosis (principal); L57.8 Other skin changes due to chronic exposure to nonionizing radiation ==

== ENCOUNTER → 2021-11-30 | Outpatient (CLI) | payer MEDICARE, MEDICAID ==
[~2021-11-30] MED LIST changes: -LISI20TA20 PO; +LISI20TA37 PO
== END ==
LOC: M SOG 13:51
PROVIDERS: ATTEND Orthopaedic Surgery
DX: M47.12 Other spondylosis with myelopathy, cervical region (principal)

== ENCOUNTER → 2021-11-30 | Outpatient (CLI) | payer MEDICARE, MEDICAID | LOC: M SOG 13:56 | PROVIDERS: ATTEND Orthopaedic Surgery | DX: M47.12 Other spondylosis with myelopathy, cervical region (principal) ==

== ENCOUNTER 2023-01-09 06:34 | Day surgery (SDC) | payer MEDICARE, MEDICAID ==
[~2023-01-09] VITALS: Ht 152.4 cm; Wt 68.9 kg
[~2023-01-09 06:34] MED LIST changes: +AMIT25TA17 PO; +DULO1CAP4 PO; +EMGA120I; +ESOM40CA35 PO; +FERR325T19; +FETZ1CAP2; +FETZ1CAP4; +HYDR200T3 PO; +MAGN400T2; +NS 1,000 ML IV ONE; +POTA10CA33; +PROP225C13 PO; +REST0.05
[2023-01-09] MEDS ORDERED: LIDOCAINE 2% 100MG/5ML SDV (FOR ANES.) As Ordered ONE (07:21)
[2023-01-09] MEDS ORDERED: propofoL 200 MG/20 ML VIAL As Ordered ONE (07:21)
[2023-01-09] MEDS ORDERED: fentaNYL 100 MCG/2 ML INJECTION As Ordered ONE (07:22)
[2023-01-09 08:35] VITALS: BP 118/59
== END 2023-01-09 08:35 | disposition home or self-care (01) ==
LOC: M OPP 06:34
PROVIDERS: ATTEND Internal Medicine Gastroenterology
DX: Z12.11 Encounter for screening for malignant neoplasm of colon (principal); Z80.0 Family history of malignant neoplasm of digestive organs; K64.0 First degree hemorrhoids; K57.30 Diverticulosis of large intestine without perforation or abscess without bleeding; R13.10 Dysphagia, unspecified; R12 Heartburn; Z87.891 Personal history of nicotine dependence; Z79.02 Long term (current) use of antithrombotics/antiplatelets; Z79.1 Long term (current) use of non-steroidal anti-inflammatories (NSAID); Z79.899 Other long term (current) drug therapy; Z88.0 Allergy status to penicillin; Z88.6 Allergy status to analgesic agent; Z88.8 Allergy status to other drugs, medicaments and biological substances; Z91.040 Latex allergy status
CPT/HCPCS: 43249; G0105; J3010

== ENCOUNTER → 2023-09-26 | Outpatient (REF) | payer MEDICARE, MEDICAID ==
[~2023-09-26] MED LIST changes: -AMIT25TA17 PO; +AMIT25TA19 PO; -HYDR200T3 PO; +HYDR200T46 PO; -NS 1,000 ML IV ONE; -POTA10CA33; +POTA10CA60
== END ==
LOC: M SFHCPLAZ 11:57
PROVIDERS: ATTEND Family Medicine
DX: Z00.00 Encounter for general adult medical examination without abnormal findings (principal)

== ENCOUNTER → 2023-09-26 | Outpatient (CLI) | payer MEDICARE, MEDICAID | LOC: M PLAIMG 12:15 | PROVIDERS: ATTEND Student in an Organized Health Care Education/Training Program | DX: M16.0 Bilateral primary osteoarthritis of hip (principal); M70.61 Trochanteric bursitis, right hip ==

== ENCOUNTER → 2024-01-19 | Outpatient (CLI) | payer MEDICARE, MEDICAID ==
[~2024-01-19] MED LIST changes: +BARIUM SULFATE 700 MG TABLET (E-Z-DISK) As Ordered ONE; +E-Z-GAS II EFFERVESCENT PACKET (SODIUM BICARB./CITRIC ACID/SIMETHICONE) As Ordered ONE; +E-Z-HD 98% w/w 340GM SUSP BTL As Ordered ONE; +E-Z-PAQUE 96% w/w SUSP 176GM BTL As Ordered ONE; -POTA10CA60; +POTA10CA70
== END ==
LOC: M RAD 08:57
PROVIDERS: ATTEND Family Medicine
DX: R10.13 Epigastric pain (principal); K22.4 Dyskinesia of esophagus; K21.9 Gastro-esophageal reflux disease without esophagitis